=== PATIENT | male | born 1950 | race Caucasian/White ===

== ENCOUNTER 2024-05-03 16:48 | Inpatient (IN) | payer SELFPAY ==
[2024-05-03] VITALS (7 sets, daily range): BP systolic 72–114; BP diastolic 46–55; PULSE 88–100; RESP 18–24; O2SAT 93–97
[~2024-05-03] VITALS: Ht 177.8 cm; Wt 77.5 kg
[2024-05-03] MEDS: MIDAZOLAM DRIP 50 mg/50mL 50 ML IV SCH (17:00)
[2024-05-03] MEDS: fentaNYL Drip 2500mCg/250mlNS 250 ML IV SCH (17:00)
[2024-05-03] MEDS: MIDAZOLAM DRIP 50 mg/50mL 50 ML IV ONE (17:03)
[2024-05-03] MEDS: SUCCINYLCHOLINE CHLORIDE 20 MG/ML 10ML VIAL IV ONE ×2 (17:03→18:00)
[2024-05-03] MEDS: ETOMIDATE (2MG/ML) 20ML VIAL IV ONE ×2 (17:03→17:59)
[2024-05-03] MEDS: SODIUM CHLORIDE 0.9% 2,200 ML IV ONE (17:15)
[2024-05-03] MEDS: fentaNYL Drip 2500mCg/250mlNS 250 ML IV ONE (17:31)
[2024-05-03] MEDS: PROPOFOL 100 ML IV SCH (17:45)
[2024-05-03] MEDS: ROCURONIUM 10MG/ML 10ML VIAL IV ONE (18:00)
[2024-05-03] MEDS: PROPOFOL 100 ML IV ONE (18:05)
[2024-05-03] MEDS: NOREPINEPHRINE 8 MG/250ML KIT 250 ML IV SCH (18:15)
[2024-05-03 18:42] LABS: Lactic Acid w/Reflex 5.8 mmol/L (0.4-2.0)
[2024-05-03 18:55] LABS: Base Excess -15.7 mmol/L (-2.0-2.0)
[2024-05-03] MEDS: NOREPINEPHRINE 8 MG/250ML KIT 250 ML IV ONE (18:56)
[2024-05-03 19:06] LABS: Basophils # (auto) 0.1 10 ^3/uL (0-0.2); Basophils % (auto) 0.4 % (0.0-2.0); Eosinophils # (auto) 0 10 ^3/uL (0-0.8); Hematocrit 42.6 % (41.0-53.0); Hemoglobin 13.7 g/dL (13.5-17.5); Lymphocytes # (auto) 0.9 10 ^3/uL (0.4-5.4); Lymphocytes % (auto) 3.7 % (10.0-50.0); Mean Corpuscular Hgb Conc. 32.2 g/dL (32.0-36.0); Mean Corpuscular Volume 93.4 fL (80.0-100.0); Monocytes # (auto) 1.8 10 ^3/uL (0-1.3); Monocytes % (auto) 7.2 % (0.0-12.0); Neutrophils % (auto) 88.7 % (37.0-80.0); Platelet Count (auto) 289 10^3/uL (140-450); Red Blood Cells 4.56 10^6/uL (4.5-5.90); Red Cell Distribution Width 13.5 % (11.8-14.3); White Blood Cell 24.8 10^3/uL (4.4-10.8)
[2024-05-03 19:16] LABS: Alanine Aminotransferase 52 U/L (7-40); Albumin 3.8 g/dL (3.2-4.8); Alkaline Phosphatase 144 U/L (46-116); Anion Gap 17 (5-15); Aspartate Aminotransferase 53 U/L (13-40); BUN/Creatinine Ratio 17.2 (10.0-20.0); Blood Urea Nitrogen 28 mg/dL (9-23); Calcium 9.1 mg/dL (8.7-10.4); Carbon Dioxide 15 mmol/L (20-30); Chloride 105 mmol/L (98-107); Creatine Kinase IFCC 417 U/L (46-171); Sodium 137 mmol/L (136-145)
[2024-05-03 19:17] LABS: Bilirubin, Total 0.4 mg/dL (0.2-1.0); Total Protein 5.8 g/dL (5.7-8.2)
[2024-05-03 19:22] LABS: Urine Bacteria None Seen /hpf (None Seen)
[2024-05-03 19:23] LABS: Glucose 625 mg/dL (74-106)
[2024-05-03 19:49] LABS: Urine Blood Negative /uL (Negative); Urine Clarity Clear (Clear); Urine Color Light-Yellow (Yellow); Urine Protein, UAD Negative (Negative); Urine Specific Gravity 1.034 (1.001-1.035); Urine Urobilinogen Normal (Negative); Urine WBC 1 /hpf (0 - 3)
[2024-05-03] MEDS: SODIUM BICARB 8.4% 50Meq/50ml SYR Vial IV ONE (19:53)
[2024-05-03] MEDS: InsuLIN REG 1unit/0.01ml Soln (100units/ml) IV ONE (19:54)
[2024-05-03] MEDS: VASOPRESSIN 20 UNITS in SODIUM CHL 0.9% 99 ML IV SCH (20:01)
[2024-05-03] MEDS ORDERED: DEXTROSE (50%) 50ML SYRG IV PRN (20:15)
[2024-05-03 20:50] LABS: Magnesium 2.2 mg/dL (1.6-2.6)
[2024-05-03 20:52] LABS: Phosphorus 5.8 mg/dL (2.4-5.1)
[2024-05-03] MEDS: ALBUTEROL SULF 2.5 MG/0.5ML(0.5%) NEB SOLN NEB ONE (21:06)
[2024-05-03] MEDS: PIPERACILLIN-TAZO 4.5GM 100 ML IV ONE (21:09)
[2024-05-03] MEDS: SODIUM CHLORIDE 0.9% 1,000 ML IV SCH (21:09)
[2024-05-03] MEDS: INSULIN LANTUS (GLARGINE) 1 /0.01ml (100units/ml) SC ONE (21:16)
[2024-05-03 21:20] LABS: Base Excess -14.6 mmol/L (-2.0-2.0)
[2024-05-03] MEDS: INSULIN DRIP 100 UNIT/100ML 100 ML IV SCH (21:20)
[2024-05-03] MEDS: ACCU-CHEK COMFORT CURVE STRIP VI SCH (21:24)
[2024-05-03] MEDS: VANCOMYCIN 1GM/200ML 200 ML IV ONE (21:29)
[2024-05-03] MEDS: CALCIUM GLUC 1,000mg/50ml-NS 50 ML IV ONE (21:33)
[2024-05-03 21:34] LABS: Chloride 106 mmol/L (98-107); Potassium 5.4 mmol/L (3.5-5.1); Sodium 139 mmol/L (136-145)
[2024-05-03 21:35] LABS: Anion Gap 22 (5-15); Carbon Dioxide 11 mmol/L (20-30)
[2024-05-03 21:36] LABS: Calcium 9.3 mg/dL (8.7-10.4)
[2024-05-03 21:41] LABS: BUN/Creatinine Ratio 12.3 (10.0-20.0); Blood Urea Nitrogen 19 mg/dL (9-23)
[2024-05-03 21:50] LABS: Glucose 618 mg/dL (74-106)
[2024-05-03 22:06] LABS: INR 0.99 (0.9-1.15); Partial Thromboplastin Time 23.9 SEC (24.5-34.5); Prothrombin Time 10.5 sec (9.3-11.8)
[2024-05-03] MEDS: HEPARIN SODIUM (PORCINE) 5000 UNITS/ML 1ML VIAL IV ONE (22:29)
[2024-05-03] MEDS: HEPARIN DRIP/D5W 100UNITS/ML 250 ML IV SCH (22:42)
[2024-05-03] MEDS ORDERED: NITROGLYCERIN 0.4 MG SL TAB SL PRN (22:45)
[2024-05-03] MEDS ORDERED: ONDANSETRON HCL 4 MG/2 ML VIAL IV PRN (22:45)
[2024-05-03] MEDS ORDERED: MORPHINE SULFATE INJ 2 MG/ml SYRG IV PRN (22:45)
[2024-05-04] VITALS (77 sets, daily range): BP systolic 95–130; BP diastolic 46–73; PULSE 72–91; RESP 17–24; TEMP 98.2–100.4; O2SAT 96–100
[2024-05-04] MEDS: SODIUM CHLORIDE 0.9% 1,000 ML IV SCH ×2 (00:26→04:09)
[2024-05-04 02:23] LABS: Anion Gap 15 (5-15); Carbon Dioxide 14 mmol/L (20-30); Chloride 114 mmol/L (98-107); Potassium 4.2 mmol/L (3.5-5.1); Sodium 143 mmol/L (136-145)
[2024-05-04 02:24] LABS: Calcium 8.5 mg/dL (8.7-10.4)
[2024-05-04 02:29] LABS: Blood Urea Nitrogen 16 mg/dL (9-23)
[2024-05-04 02:55] LABS: Glucose 368 mg/dL (74-106)
[2024-05-04 03:36] LABS: Basophils # (auto) 0 10 ^3/uL (0-0.2); Basophils % (auto) 0.3 % (0.0-2.0); Eosinophils # (auto) 0 10 ^3/uL (0-0.8); Hematocrit 40.2 % (41.0-53.0); Hemoglobin 12.9 g/dL (13.5-17.5); Mean Corpuscular Hemoglobin 30.1 pg (28.0-32.0); Mean Corpuscular Hgb Conc. 32.2 g/dL (32.0-36.0); Mean Corpuscular Volume 93.6 fL (80.0-100.0); Monocytes # (auto) 2.4 10 ^3/uL (0-1.3); Monocytes % (auto) 13.4 % (0.0-12.0); Neutrophils # (auto) 13.7 10 ^3/uL (1.6-8.6); Neutrophils % (auto) 75.3 % (37.0-80.0); Platelet Count (auto) 273 10^3/uL (140-450); Red Blood Cells 4.29 10^6/uL (4.5-5.90); Red Cell Distribution Width 13.7 % (11.8-14.3); White Blood Cell 18.2 10^3/uL (4.4-10.8)
[2024-05-04 03:59] LABS: Alanine Aminotransferase 50 U/L (7-40); Albumin 3.4 g/dL (3.2-4.8); Alkaline Phosphatase 116 U/L (46-116); Anion Gap 14 (5-15); Aspartate Aminotransferase 63 U/L (13-40); BUN/Creatinine Ratio 14.2 (10.0-20.0); Bilirubin, Total 0.3 mg/dL (0.2-1.0); Blood Urea Nitrogen 20 mg/dL (9-23); Calcium 8.4 mg/dL (8.7-10.4); Carbon Dioxide 16 mmol/L (20-30); Chloride 115 mmol/L (98-107); Glucose 344 mg/dL (74-106); Potassium 4.1 mmol/L (3.5-5.1); Sodium 145 mmol/L (136-145); Total Protein 5.6 g/dL (5.7-8.2)
[2024-05-04 05:25] LABS: INR 0.98 (0.9-1.15); Partial Thromboplastin Time 68.1 SEC (24.5-34.5); Prothrombin Time 10.4 sec (9.3-11.8)
[2024-05-04 07:30] LABS: Base Excess -8.1 mmol/L (-2.0-2.0)
[2024-05-04] MEDS: PIPERACILLIN-TAZOB 3.375GM 100 ML IV SCH (07:53)
[2024-05-04 10:29] LABS: Alanine Aminotransferase 43 U/L (7-40); Albumin 3.1 g/dL (3.2-4.8); Alkaline Phosphatase 98 U/L (46-116); Anion Gap 10 (5-15); Aspartate Aminotransferase 55 U/L (13-40); BUN/Creatinine Ratio 19.2 (10.0-20.0); Bilirubin, Total 0.4 mg/dL (0.2-1.0); Blood Urea Nitrogen 23 mg/dL (9-23); Calcium 7.8 mg/dL (8.7-10.4); Carbon Dioxide 20 mmol/L (20-30); Chloride 119 mmol/L (98-107); Potassium 3.6 mmol/L (3.5-5.1); Sodium 149 mmol/L (136-145); Total Protein 4.9 g/dL (5.7-8.2)
[2024-05-04 10:43] LABS: Glucose 153 mg/dL (74-106)
[2024-05-04 10:45] LABS: Partial Thromboplastin Time 53.4 SEC (24.5-34.5); Prothrombin Time 10.6 sec (9.3-11.8)
[2024-05-04] MEDS: SOD CHL 0.45% 1,000 ML IV SCH (11:30)
[2024-05-04 12:40] LABS: Chloride 119 mmol/L (98-107); Potassium 3.4 mmol/L (3.5-5.1); Sodium 149 mmol/L (136-145)
[2024-05-04 12:41] LABS: Anion Gap 9 (5-15); Carbon Dioxide 21 mmol/L (20-30)
[2024-05-04 12:42] LABS: Calcium 7.9 mg/dL (8.7-10.4)
[2024-05-04 12:46] LABS: BUN/Creatinine Ratio 19.2 (10.0-20.0); Blood Urea Nitrogen 25 mg/dL (9-23); Glucose 99 mg/dL (74-106)
[2024-05-04] MEDS ORDERED: DEXTROSE (50%) 50ML SYRG IV PRN (13:15)
[2024-05-04 13:31] LABS: Amphetamine Screen, Urine Neg (NEGATIVE)
[2024-05-04 13:32] LABS: Barbiturate Scree,Urine Neg (NEGATIVE); Benzodiazephine Screen, Urine Pos (NEGATIVE); Cannabinoid Screen, Urine Neg (NEGATIVE); Cocaine Screen, Urine Neg (NEGATIVE); Opiate Scree,Urine Neg (NEGATIVE); Phencyclidine Screen, Urine Neg (NEGATIVE)
[2024-05-04] MEDS: SOD CHL 0.45% WITH 20MEQ KCL 1,000 ML IV SCH (13:52)
[2024-05-04] MEDS: FREE WATER GT SCH (17:43)
[2024-05-04] MEDS: InsuLIN REG 1unit/0.01ml Soln (100units/ml) SC SCH (17:43)
[2024-05-04] MEDS: ACCU-CHEK COMFORT CURVE STRIP VI SCH (17:43)
[2024-05-04 18:08] LABS: Chloride 120 mmol/L (98-107); Potassium 3.9 mmol/L (3.5-5.1); Sodium 147 mmol/L (136-145)
[2024-05-04 18:09] LABS: Anion Gap 7 (5-15); Carbon Dioxide 20 mmol/L (20-30)
[2024-05-04 18:10] LABS: Calcium 7.8 mg/dL (8.7-10.4)
[2024-05-04 18:14] LABS: BUN/Creatinine Ratio 19.1 (10.0-20.0); Blood Urea Nitrogen 25 mg/dL (9-23); Glucose 127 mg/dL (74-106)
[2024-05-04] MEDS: Glucerna 1.2 Cal 1Liter BOTTLE GT SCH (21:42)
[2024-05-04] MEDS: INSULIN LANTUS (GLARGINE) 1 /0.01ml (100units/ml) SC SCH (21:47)
[2024-05-05] VITALS (106 sets, daily range): BP systolic 96–134; BP diastolic 47–66; PULSE 65–80; RESP 11–19; TEMP 97.7–99.7; O2SAT 88–100
[2024-05-05 03:54] LABS: Basophils # (auto) 0 10 ^3/uL (0-0.2); Basophils % (auto) 0.2 % (0.0-2.0); Eosinophils # (auto) 0 10 ^3/uL (0-0.8); Eosinophils % (auto) 0.2 % (0.0-7.0); Hematocrit 34.6 % (41.0-53.0); Hemoglobin 11.6 g/dL (13.5-17.5); Lymphocytes # (auto) 1.1 10 ^3/uL (0.4-5.4); Lymphocytes % (auto) 10.4 % (10.0-50.0); Mean Corpuscular Hemoglobin 30.8 pg (28.0-32.0); Mean Corpuscular Hgb Conc. 33.5 g/dL (32.0-36.0); Mean Corpuscular Volume 91.7 fL (80.0-100.0); Monocytes % (auto) 9.9 % (0.0-12.0); Neutrophils # (auto) 8.2 10 ^3/uL (1.6-8.6); Neutrophils % (auto) 79.3 % (37.0-80.0); Platelet Count (auto) 163 10^3/uL (140-450); Red Blood Cells 3.77 10^6/uL (4.5-5.90); Red Cell Distribution Width 13.7 % (11.8-14.3); White Blood Cell 10.3 10^3/uL (4.4-10.8)
[2024-05-05 03:57] LABS: Anion Gap 6 (5-15); Carbon Dioxide 20 mmol/L (20-30); Chloride 116 mmol/L (98-107); Potassium 4.7 mmol/L (3.5-5.1); Sodium 142 mmol/L (136-145)
[2024-05-05 04:03] LABS: BUN/Creatinine Ratio 20.6 (10.0-20.0); Blood Urea Nitrogen 27 mg/dL (9-23); Glucose 173 mg/dL (74-106)
[2024-05-05 07:13] LABS: Base Excess -10.6 mmol/L (-2.0-2.0)
[2024-05-05] MEDS: SOD CHL 0.45% 1,000 ML IV SCH (10:04)
[2024-05-05] MEDS: ENOXAPARIN SOD 40 MG/0.4 ML SYRINGE SC SCH (10:05)
[2024-05-06] VITALS (106 sets, daily range): BP systolic 100–183; BP diastolic 45–79; PULSE 61–87; RESP 13–27; TEMP 97–100; O2SAT 89–100
[2024-05-06 03:47] LABS: Basophils # (auto) 0 10 ^3/uL (0-0.2); Basophils % (auto) 0.2 % (0.0-2.0); Eosinophils # (auto) 0 10 ^3/uL (0-0.8); Eosinophils % (auto) 0.4 % (0.0-7.0); Hemoglobin 11.7 g/dL (13.5-17.5); Lymphocytes % (auto) 12.8 % (10.0-50.0); Mean Corpuscular Hgb Conc. 33.4 g/dL (32.0-36.0); Mean Corpuscular Volume 92.6 fL (80.0-100.0); Monocytes # (auto) 0.8 10 ^3/uL (0-1.3); Monocytes % (auto) 9.9 % (0.0-12.0); Neutrophils # (auto) 6.3 10 ^3/uL (1.6-8.6); Neutrophils % (auto) 76.7 % (37.0-80.0); Nucleated Red Blood Cells % 0.2 %; Platelet Count (auto) 140 10^3/uL (140-450); Red Blood Cells 3.78 10^6/uL (4.5-5.90); Red Cell Distribution Width 14.1 % (11.8-14.3); White Blood Cell 8.2 10^3/uL (4.4-10.8)
[2024-05-06 03:52] LABS: Chloride 113 mmol/L (98-107); Sodium 139 mmol/L (136-145)
[2024-05-06 03:53] LABS: Anion Gap 9 (5-15); Calcium 8.2 mg/dL (8.7-10.4); Carbon Dioxide 17 mmol/L (20-30)
[2024-05-06 03:58] LABS: BUN/Creatinine Ratio 24.7 (10.0-20.0); Blood Urea Nitrogen 39 mg/dL (9-23); Glucose 160 mg/dL (74-106)
[2024-05-06 04:00] LABS: Creatine Kinase IFCC 90 U/L (46-171); Phosphorus 4.5 mg/dL (2.4-5.1)
[2024-05-06 08:06] LABS: Base Excess -10.4 mmol/L (-2.0-2.0)
[2024-05-06] MEDS ORDERED: Glucerna 1.2 Cal 1Liter BOTTLE GT SCH (08:45)
[2024-05-06] MEDS: SODIUM BICARB 50mEq/50ml Vial 50 ML in SOD CHL 0.45% 1,000 ML IV SCH (10:06)
[2024-05-06] MEDS: ASPirin-EC 81 mg tab PO SCH (10:42)
[2024-05-06 16:49] LABS: Urine Bacteria None Seen /hpf (None Seen)
[2024-05-06 17:44] LABS: Sodium Urine < 10 mmol/L (40-220)
[2024-05-06 17:53] LABS: Creatinine, Urine 188.48 mg/dL (30.0-125.0)
[2024-05-06 18:08] LABS: Urine Blood 3+ /uL (Negative); Urine Clarity Ex.Turbid (Clear); Urine Color Yellow (Yellow); Urine Protein, UAD 1+ (Negative); Urine Specific Gravity 1.027 (1.001-1.035); Urine Urobilinogen Normal (Negative); Urine WBC 125 /hpf (0 - 3); Urine pH 5.5 (5.0-9.0)
[2024-05-07] VITALS (85 sets, daily range): BP systolic 99–183; BP diastolic 50–105; PULSE 77–99; RESP 13–33; TEMP 99.1–100.2; O2SAT 95–100
[2024-05-07 04:19] LABS: Anion Gap 12 (5-15); Carbon Dioxide 16 mmol/L (20-30); Chloride 110 mmol/L (98-107); Potassium 3.8 mmol/L (3.5-5.1); Sodium 138 mmol/L (136-145)
[2024-05-07 04:20] LABS: Calcium 8.3 mg/dL (8.7-10.4)
[2024-05-07 04:25] LABS: BUN/Creatinine Ratio 27.4 (10.0-20.0); Blood Urea Nitrogen 34 mg/dL (9-23); Glucose 166 mg/dL (74-106); Triglycerides 105 mg/dL (< 150)
[2024-05-07 04:26] LABS: LDL Cholesterol 56 mg/dL (< 100)
[2024-05-07 04:27] LABS: Cholesterol 119 mg/dL (< 200); HDL Cholesterol 38 mg/dL (40-59)
[2024-05-07 07:24] LABS: Basophils # (auto) 0 10 ^3/uL (0-0.2); Basophils % (auto) 0.2 % (0.0-2.0); Eosinophils # (auto) 0 10 ^3/uL (0-0.8); Hematocrit 35.2 % (41.0-53.0); Hemoglobin 11.9 g/dL (13.5-17.5); Lymphocytes # (auto) 0.6 10 ^3/uL (0.4-5.4); Lymphocytes % (auto) 4.8 % (10.0-50.0); Mean Corpuscular Hemoglobin 31.2 pg (28.0-32.0); Mean Corpuscular Hgb Conc. 33.7 g/dL (32.0-36.0); Mean Corpuscular Volume 92.6 fL (80.0-100.0); Monocytes # (auto) 1.1 10 ^3/uL (0-1.3); Monocytes % (auto) 8.8 % (0.0-12.0); Neutrophils # (auto) 10.3 10 ^3/uL (1.6-8.6); Neutrophils % (auto) 86.2 % (37.0-80.0); Platelet Count (auto) 198 10^3/uL (140-450); Red Cell Distribution Width 13.7 % (11.8-14.3); White Blood Cell 11.9 10^3/uL (4.4-10.8)
[2024-05-07 07:35] LABS: Base Excess -7.1 mmol/L (-2.0-2.0)
[2024-05-07] MEDS: FUROSEMIDE 20 MG TAB PO SCH (09:43)
[2024-05-07] MEDS: cefTRIAXone 1GM/50ML D5W 50 ML IV SCH (09:43)
[2024-05-07] MEDS: METOPROLOL TARTRATE 25 MG TAB PO SCH (09:44)
[2024-05-07] MEDS: BUMETANIDE 2.5mg/10ml (0.25 mg/ml) INJ IV ONE (15:08)
[2024-05-07] MEDS: ACETAMINOPHEN 325 MG TAB PO PRN (17:44)
[2024-05-08] VITALS (109 sets, daily range): BP systolic 77–183; BP diastolic 47–95; PULSE 59–141; RESP 15–33; TEMP 97.7–100.4; O2SAT 95–100
[2024-05-08 04:06] LABS: Basophils # (auto) 0.1 10 ^3/uL (0-0.2); Basophils % (auto) 0.6 % (0.0-2.0); Eosinophils # (auto) 0 10 ^3/uL (0-0.8); Eosinophils % (auto) 0.1 % (0.0-7.0); Hematocrit 36.5 % (41.0-53.0); Hemoglobin 12.2 g/dL (13.5-17.5); Lymphocytes # (auto) 0.8 10 ^3/uL (0.4-5.4); Lymphocytes % (auto) 6.7 % (10.0-50.0); Mean Corpuscular Hemoglobin 30.6 pg (28.0-32.0); Mean Corpuscular Hgb Conc. 33.5 g/dL (32.0-36.0); Mean Corpuscular Volume 91.5 fL (80.0-100.0); Monocytes % (auto) 8.8 % (0.0-12.0); Neutrophils # (auto) 9.7 10 ^3/uL (1.6-8.6); Neutrophils % (auto) 83.8 % (37.0-80.0); Platelet Count (auto) 238 10^3/uL (140-450); Red Blood Cells 3.99 10^6/uL (4.5-5.90); Red Cell Distribution Width 13.4 % (11.8-14.3); White Blood Cell 11.6 10^3/uL (4.4-10.8)
[2024-05-08 04:09] LABS: Chloride 108 mmol/L (98-107); Sodium 140 mmol/L (136-145)
[2024-05-08 04:10] LABS: Anion Gap 11 (5-15); Calcium 8.3 mg/dL (8.7-10.4); Carbon Dioxide 21 mmol/L (20-30)
[2024-05-08 04:15] LABS: BUN/Creatinine Ratio 23.2 (10.0-20.0); Blood Urea Nitrogen 22 mg/dL (9-23); Glucose 85 mg/dL (74-106)
[2024-05-08] MEDS: hydrALAZINE HCL 20 MG/ML VL ONE (06:56)
[2024-05-08 07:27] LABS: Base Excess -2.9 mmol/L (-2.0-2.0)
[2024-05-08] MEDS: hydrALAZINE HCL 20 MG/ML VL IV ONE (07:28)
[2024-05-08] MEDS: POTASSIUM CHL 20MEQ/100ML 100 ML IV ONE (08:06)
[2024-05-08] MEDS: CARVEDILOL 3.125 MG TAB PO SCH (10:00)
[2024-05-08] MEDS: LOSARTAN POTASSIUM 25 MG TAB PO SCH (10:00)
[2024-05-08] MEDS: POTASSIUM EFFERVESENT TAB 25 MEQ PO ONE (10:20)
[2024-05-08] MEDS: FUROSEMIDE 20 MG/2 ML VIAL IV SCH (10:20)
[2024-05-08 14:48] LABS: Potassium 3.5 mmol/L (3.5-5.1)
[2024-05-08 14:55] LABS: Magnesium 1.8 mg/dL (1.6-2.6)
[2024-05-09] VITALS (75 sets, daily range): BP systolic 79–164; BP diastolic 46–82; PULSE 63–101; RESP 12–27; TEMP 97.8–100; O2SAT 94–100
[2024-05-09 04:29] LABS: Anion Gap 13 (5-15); Carbon Dioxide 20 mmol/L (20-30); Chloride 108 mmol/L (98-107); Potassium 3.2 mmol/L (3.5-5.1); Sodium 141 mmol/L (136-145)
[2024-05-09 04:30] LABS: Calcium 8.3 mg/dL (8.7-10.4)
[2024-05-09 04:32] LABS: Basophils # (auto) 0 10 ^3/uL (0-0.2); Basophils % (auto) 0.1 % (0.0-2.0); Eosinophils # (auto) 0 10 ^3/uL (0-0.8); Eosinophils % (auto) 0.3 % (0.0-7.0); Hematocrit 36.3 % (41.0-53.0); Lymphocytes # (auto) 0.9 10 ^3/uL (0.4-5.4); Mean Corpuscular Hemoglobin 30.3 pg (28.0-32.0); Mean Corpuscular Hgb Conc. 33.2 g/dL (32.0-36.0); Mean Corpuscular Volume 91.4 fL (80.0-100.0); Monocytes # (auto) 1.2 10 ^3/uL (0-1.3); Monocytes % (auto) 10.5 % (0.0-12.0); Neutrophils # (auto) 9.2 10 ^3/uL (1.6-8.6); Neutrophils % (auto) 81.1 % (37.0-80.0); Platelet Count (auto) 247 10^3/uL (140-450); Red Blood Cells 3.97 10^6/uL (4.5-5.90); Red Cell Distribution Width 13.3 % (11.8-14.3); White Blood Cell 11.4 10^3/uL (4.4-10.8)
[2024-05-09 04:35] LABS: BUN/Creatinine Ratio 24.4 (10.0-20.0); Blood Urea Nitrogen 22 mg/dL (9-23); Glucose 110 mg/dL (74-106)
[2024-05-09] MEDS: POTASSIUM CHL 20MEQ/100ML 100 ML IV SCH (08:26)
[2024-05-09 08:47] LABS: Base Excess -4.8 mmol/L (-2.0-2.0)
[2024-05-09] MEDS: FUROSEMIDE 40 MG/4 ML VIAL IV SCH (14:34)
[2024-05-10] VITALS (25 sets, daily range): BP systolic 123–171; BP diastolic 62–90; PULSE 89–106; RESP 18–31; TEMP 99.1–99.9; O2SAT 92–100
[2024-05-10] MEDS: POTASSIUM CHL 20MEQ/100ML 100 ML IV ONE (01:23)
[2024-05-10] MEDS: hydrALAZINE HCL 20 MG/ML VL IV PRN (01:24)
[2024-05-10 05:48] LABS: Basophils # (auto) 0 10 ^3/uL (0-0.2); Basophils % (auto) 0.3 % (0.0-2.0); Eosinophils # (auto) 0 10 ^3/uL (0-0.8); Eosinophils % (auto) 0.1 % (0.0-7.0); Hematocrit 38.4 % (41.0-53.0); Hemoglobin 12.9 g/dL (13.5-17.5); Lymphocytes # (auto) 1.1 10 ^3/uL (0.4-5.4); Lymphocytes % (auto) 10.6 % (10.0-50.0); Mean Corpuscular Hemoglobin 30.6 pg (28.0-32.0); Mean Corpuscular Hgb Conc. 33.7 g/dL (32.0-36.0); Mean Corpuscular Volume 90.7 fL (80.0-100.0); Monocytes # (auto) 1.6 10 ^3/uL (0-1.3); Monocytes % (auto) 15.2 % (0.0-12.0); Neutrophils # (auto) 7.9 10 ^3/uL (1.6-8.6); Neutrophils % (auto) 73.8 % (37.0-80.0); Nucleated Red Blood Cells % 0.1 %; Platelet Count (auto) 320 10^3/uL (140-450); Red Blood Cells 4.23 10^6/uL (4.5-5.90); Red Cell Distribution Width 13.5 % (11.8-14.3); White Blood Cell 10.7 10^3/uL (4.4-10.8)
[2024-05-10 06:07] LABS: Anion Gap 14 (5-15); Carbon Dioxide 22 mmol/L (20-30); Chloride 109 mmol/L (98-107); Potassium 3.3 mmol/L (3.5-5.1); Sodium 145 mmol/L (136-145)
[2024-05-10 06:08] LABS: Calcium 8.7 mg/dL (8.7-10.4)
[2024-05-10 06:13] LABS: BUN/Creatinine Ratio 23.9 (10.0-20.0); Blood Urea Nitrogen 21 mg/dL (9-23); Glucose 87 mg/dL (74-106)
[2024-05-10] MEDS: POTASSIUM CHL 20MEQ/100ML 100 ML IV SCH (09:46)
[2024-05-10] MEDS: D5W/LACTATED RINGERS 1,000 ML IV SCH (21:41)
[2024-05-11] VITALS (27 sets, daily range): BP systolic 133–198; BP diastolic 58–100; PULSE 89–112; RESP 13–31; TEMP 97.4–99.5; O2SAT 89–100
[2024-05-11 05:22] LABS: Basophils # (auto) 0 10 ^3/uL (0-0.2); Basophils % (auto) 0.1 % (0.0-2.0); Eosinophils # (auto) 0 10 ^3/uL (0-0.8); Hematocrit 39.5 % (41.0-53.0); Hemoglobin 13.1 g/dL (13.5-17.5); Lymphocytes # (auto) 1.2 10 ^3/uL (0.4-5.4); Lymphocytes % (auto) 9.3 % (10.0-50.0); Mean Corpuscular Hemoglobin 30.1 pg (28.0-32.0); Mean Corpuscular Hgb Conc. 33.1 g/dL (32.0-36.0); Mean Corpuscular Volume 91.1 fL (80.0-100.0); Monocytes # (auto) 1.7 10 ^3/uL (0-1.3); Monocytes % (auto) 12.6 % (0.0-12.0); Neutrophils # (auto) 10.3 10 ^3/uL (1.6-8.6); Platelet Count (auto) 333 10^3/uL (140-450); Red Blood Cells 4.34 10^6/uL (4.5-5.90); Red Cell Distribution Width 13.5 % (11.8-14.3); White Blood Cell 13.2 10^3/uL (4.4-10.8)
[2024-05-11 05:34] LABS: Alanine Aminotransferase 37 U/L (7-40); Albumin 2.8 g/dL (3.2-4.8); Alkaline Phosphatase 115 U/L (46-116); Anion Gap 19 (5-15); Aspartate Aminotransferase 29 U/L (13-40); Bilirubin, Total 0.5 mg/dL (0.2-1.0); Blood Urea Nitrogen 23 mg/dL (9-23); Calcium 8.7 mg/dL (8.7-10.4); Carbon Dioxide 17 mmol/L (20-30); Chloride 111 mmol/L (98-107); Potassium 3.3 mmol/L (3.5-5.1); Sodium 147 mmol/L (136-145); Total Protein 5.2 g/dL (5.7-8.2)
[2024-05-11 05:57] LABS: Glucose 198 mg/dL (74-106)
[2024-05-11] MEDS ORDERED: POTASSIUM CHL 20MEQ/100ML 100 ML IV ONE (10:30)
[2024-05-11] MEDS: POTASSIUM CHL 20MEQ/100ML 100 ML IV SCH (11:06)
[2024-05-11] MEDS: HALOPERIDOL LACTATE 5 MG/ML INJ VIAL IM ONE (14:00)
[2024-05-11] MEDS: INSULIN LANTUS (GLARGINE) 1 /0.01ml (100units/ml) SC ONE (14:15)
[2024-05-11] MEDS ORDERED: Glucerna 1.2 Cal 1Liter BOTTLE GT SCH (14:15)
[2024-05-11] MEDS: LORazepam 2MG/ML-1ML VIAL IV PRN (22:04)
[2024-05-12] VITALS (16 sets, daily range): BP systolic 116–187; BP diastolic 55–89; PULSE 85–113; RESP 18–35; TEMP 97.5–98.6; O2SAT 92–98
[2024-05-12 04:51] LABS: Basophils # (auto) 0 10 ^3/uL (0-0.2); Basophils % (auto) 0.2 % (0.0-2.0); Eosinophils # (auto) 0 10 ^3/uL (0-0.8); Eosinophils % (auto) 0.1 % (0.0-7.0); Hematocrit 39.8 % (41.0-53.0); Hemoglobin 13.5 g/dL (13.5-17.5); Lymphocytes # (auto) 1.5 10 ^3/uL (0.4-5.4); Lymphocytes % (auto) 9.1 % (10.0-50.0); Mean Corpuscular Hemoglobin 30.8 pg (28.0-32.0); Mean Corpuscular Hgb Conc. 33.9 g/dL (32.0-36.0); Mean Corpuscular Volume 90.8 fL (80.0-100.0); Monocytes # (auto) 1.4 10 ^3/uL (0-1.3); Monocytes % (auto) 8.7 % (0.0-12.0); Neutrophils # (auto) 13.1 10 ^3/uL (1.6-8.6); Neutrophils % (auto) 81.9 % (37.0-80.0); Platelet Count (auto) 354 10^3/uL (140-450); Red Blood Cells 4.39 10^6/uL (4.5-5.90); Red Cell Distribution Width 13.7 % (11.8-14.3)
[2024-05-12 04:59] LABS: Anion Gap 18 (5-15); Carbon Dioxide 17 mmol/L (20-30); Chloride 115 mmol/L (98-107); Potassium 3.6 mmol/L (3.5-5.1); Sodium 150 mmol/L (136-145)
[2024-05-12 05:06] LABS: Blood Urea Nitrogen 23 mg/dL (9-23); Glucose 196 mg/dL (74-106)
[2024-05-12 05:13] LABS: INR 1.14 (0.9-1.15); Partial Thromboplastin Time 26.3 SEC (24.5-34.5)
[2024-05-12] MEDS: POTASSIUM CHL 20MEQ/100ML 100 ML IV ONE (13:45)
[2024-05-12] MEDS ORDERED: CLINIMIX PER PHARMACY 0 ML IV SCH (20:00)
[2024-05-12] MEDS: AMINO ACID INFUSION IN D10W 1,000 ML IV SCH (21:46)
[2024-05-13] VITALS (34 sets, daily range): BP systolic 126–170; BP diastolic 66–94; PULSE 66–111; RESP 14–27; TEMP 97.1–99.2; O2SAT 91–98
[2024-05-13 05:28] LABS: Basophils # (auto) 0 10 ^3/uL (0-0.2); Basophils % (auto) 0.2 % (0.0-2.0); Eosinophils # (auto) 0 10 ^3/uL (0-0.8); Hematocrit 39.4 % (41.0-53.0); Hemoglobin 13.1 g/dL (13.5-17.5); Lymphocytes # (auto) 1.4 10 ^3/uL (0.4-5.4); Lymphocytes % (auto) 10.3 % (10.0-50.0); Mean Corpuscular Hgb Conc. 33.3 g/dL (32.0-36.0); Mean Corpuscular Volume 90.1 fL (80.0-100.0); Monocytes # (auto) 1.1 10 ^3/uL (0-1.3); Monocytes % (auto) 8.1 % (0.0-12.0); Neutrophils # (auto) 11.2 10 ^3/uL (1.6-8.6); Neutrophils % (auto) 81.4 % (37.0-80.0); Platelet Count (auto) 380 10^3/uL (140-450); Red Blood Cells 4.37 10^6/uL (4.5-5.90); Red Cell Distribution Width 13.5 % (11.8-14.3); White Blood Cell 13.8 10^3/uL (4.4-10.8)
[2024-05-13 05:52] LABS: Alanine Aminotransferase 30 U/L (7-40); Albumin 3.2 g/dL (3.2-4.8); Alkaline Phosphatase 121 U/L (46-116); Anion Gap 16 (5-15); Aspartate Aminotransferase 22 U/L (13-40); BUN/Creatinine Ratio 24.8 (10.0-20.0); Bilirubin, Total 0.5 mg/dL (0.2-1.0); Blood Urea Nitrogen 25 mg/dL (9-23); Calcium 9.2 mg/dL (8.7-10.4); Carbon Dioxide 21 mmol/L (20-30); Chloride 116 mmol/L (98-107); Glucose 164 mg/dL (74-106); Magnesium 1.9 mg/dL (1.6-2.6); Phosphorus 2.8 mg/dL (2.4-5.1); Potassium 3.4 mmol/L (3.5-5.1); Sodium 153 mmol/L (136-145); Total Protein 5.4 g/dL (5.7-8.2)
[2024-05-13] MEDS: POTASSIUM EFFERVESENT TAB 25 MEQ GT ONE (10:20)
[2024-05-13] MEDS ORDERED: DEXTROSE (50%) 50ML SYRG IV SCH (10:45)
[2024-05-13] MEDS: ACCU-CHEK COMFORT CURVE STRIP VI SCH ×2 (10:53→16:52)
[2024-05-13] MEDS: InsuLIN REG 1unit/0.01ml Soln (100units/ml) SC SCH ×3 (11:21→22:17)
[2024-05-13] MEDS: HALOPERIDOL LACTATE 5 MG/ML INJ VIAL IM PRN (17:40)
[2024-05-14] VITALS (41 sets, daily range): BP systolic 113–189; BP diastolic 52–95; PULSE 72–101; RESP 12–26; TEMP 97.6–98.4; O2SAT 88–98
[2024-05-14 05:32] LABS: Basophils # (auto) 0 10 ^3/uL (0-0.2); Basophils % (auto) 0.2 % (0.0-2.0); Eosinophils # (auto) 0 10 ^3/uL (0-0.8); Eosinophils % (auto) 0.2 % (0.0-7.0); Hematocrit 39.6 % (41.0-53.0); Hemoglobin 13.1 g/dL (13.5-17.5); Lymphocytes # (auto) 1.5 10 ^3/uL (0.4-5.4); Lymphocytes % (auto) 11.8 % (10.0-50.0); Mean Corpuscular Hemoglobin 30.1 pg (28.0-32.0); Mean Corpuscular Hgb Conc. 33.2 g/dL (32.0-36.0); Mean Corpuscular Volume 90.7 fL (80.0-100.0); Monocytes # (auto) 0.8 10 ^3/uL (0-1.3); Neutrophils # (auto) 10.5 10 ^3/uL (1.6-8.6); Neutrophils % (auto) 81.8 % (37.0-80.0); Nucleated Red Blood Cells % 0.1 %; Platelet Count (auto) 345 10^3/uL (140-450); Red Blood Cells 4.36 10^6/uL (4.5-5.90); Red Cell Distribution Width 13.6 % (11.8-14.3); White Blood Cell 12.9 10^3/uL (4.4-10.8)
[2024-05-14 05:47] LABS: Alanine Aminotransferase 28 U/L (7-40); Albumin 3.3 g/dL (3.2-4.8); Alkaline Phosphatase 117 U/L (46-116); Anion Gap 9 (5-15); Aspartate Aminotransferase 31 U/L (13-40); BUN/Creatinine Ratio 24.2 (10.0-20.0); Blood Urea Nitrogen 22 mg/dL (9-23); Calcium 9.4 mg/dL (8.7-10.4); Carbon Dioxide 29 mmol/L (20-30); Chloride 118 mmol/L (98-107); Glucose 134 mg/dL (74-106); Potassium 3.4 mmol/L (3.5-5.1); Sodium 156 mmol/L (136-145)
[2024-05-14 05:48] LABS: Bilirubin, Total 0.5 mg/dL (0.2-1.0); Total Protein 5.4 g/dL (5.7-8.2)
[2024-05-14] MEDS: POTASSIUM EFFERVESENT TAB 25 MEQ PO ONE (09:26)
[2024-05-14] MEDS: FREE WATER PO SCH (15:46)
[2024-05-15] VITALS (14 sets, daily range): BP systolic 99–137; BP diastolic 50–75; PULSE 77–106; RESP 18–24; TEMP 97.3–98.5; O2SAT 91–100
[2024-05-15 05:43] LABS: Basophils # (auto) 0 10 ^3/uL (0-0.2); Eosinophils # (auto) 0 10 ^3/uL (0-0.8); Eosinophils % (auto) 0.2 % (0.0-7.0); Hematocrit 34.1 % (41.0-53.0); Hemoglobin 11.7 g/dL (13.5-17.5); Lymphocytes # (auto) 1.6 10 ^3/uL (0.4-5.4); Mean Corpuscular Hgb Conc. 34.3 g/dL (32.0-36.0); Mean Corpuscular Volume 90.3 fL (80.0-100.0); Monocytes # (auto) 0.9 10 ^3/uL (0-1.3); Monocytes % (auto) 5.7 % (0.0-12.0); Neutrophils # (auto) 13.2 10 ^3/uL (1.6-8.6); Neutrophils % (auto) 84.1 % (37.0-80.0); Platelet Count (auto) 266 10^3/uL (140-450); Red Blood Cells 3.77 10^6/uL (4.5-5.90); Red Cell Distribution Width 13.1 % (11.8-14.3); White Blood Cell 15.7 10^3/uL (4.4-10.8)
[2024-05-15 05:54] LABS: Alanine Aminotransferase 28 U/L (7-40); Albumin 2.8 g/dL (3.2-4.8); Alkaline Phosphatase 106 U/L (46-116); Anion Gap 9 (5-15); Aspartate Aminotransferase 39 U/L (13-40); BUN/Creatinine Ratio 20.7 (10.0-20.0); Bilirubin, Total 0.5 mg/dL (0.2-1.0); Blood Urea Nitrogen 18 mg/dL (9-23); Calcium 8.5 mg/dL (8.7-10.4); Carbon Dioxide 30 mmol/L (20-30); Glucose 135 mg/dL (74-106); Magnesium 1.6 mg/dL (1.6-2.6); Potassium 3.2 mmol/L (3.5-5.1)
[2024-05-15 06:12] LABS: Chloride 108 mmol/L (98-107); Sodium 147 mmol/L (136-145)
[2024-05-15] MEDS: MAGNESIUM SULFATE 1GM/100ML 100 ML IV SCH (11:00)
[2024-05-15] MEDS: ADENOSINE 62 MG in GIVE UN-DILUTED 0 ML IV STA (11:37)
[2024-05-15] MEDS: POTASSIUM CHLORIDE 40 MEQ, LIDOCAINE 1% (LOCAL ANESTH.) 4 ML in SODIUM CHL 0.9% 250 ML IV ONE (14:55)
[2024-05-15 19:59] LABS: Base Excess 1.9 mmol/L (-2.0-2.0)
[2024-05-15] MEDS: ALBUTEROL SULF 2.5 MG/0.5ML(0.5%) NEB SOLN NEB PRN (20:24)
[2024-05-15] MEDS: IPRATROPIUM BROM 0.5 MG/2.5ML INH SOL NEB PRN (20:24)
[2024-05-16] VITALS (13 sets, daily range): BP systolic 105–136; BP diastolic 56–77; PULSE 72–101; RESP 17–18; TEMP 97.6–98.9; O2SAT 90–94
[2024-05-16 05:55] LABS: Basophils # (auto) 0 10 ^3/uL (0-0.2); Basophils % (auto) 0.2 % (0.0-2.0); Eosinophils # (auto) 0.1 10 ^3/uL (0-0.8); Eosinophils % (auto) 0.4 % (0.0-7.0); Hematocrit 32.8 % (41.0-53.0); Hemoglobin 10.8 g/dL (13.5-17.5); Lymphocytes # (auto) 1.1 10 ^3/uL (0.4-5.4); Lymphocytes % (auto) 7.8 % (10.0-50.0); Mean Corpuscular Hemoglobin 30.1 pg (28.0-32.0); Mean Corpuscular Hgb Conc. 33.1 g/dL (32.0-36.0); Monocytes # (auto) 0.7 10 ^3/uL (0-1.3); Monocytes % (auto) 5.2 % (0.0-12.0); Neutrophils # (auto) 12.3 10 ^3/uL (1.6-8.6); Neutrophils % (auto) 86.4 % (37.0-80.0); Platelet Count (auto) 248 10^3/uL (140-450); Red Cell Distribution Width 13.2 % (11.8-14.3); White Blood Cell 14.3 10^3/uL (4.4-10.8)
[2024-05-16 06:49] LABS: Alanine Aminotransferase 22 U/L (7-40); Albumin 2.6 g/dL (3.2-4.8); Alkaline Phosphatase 93 U/L (46-116); Anion Gap 7 (5-15); Aspartate Aminotransferase 31 U/L (13-40); BUN/Creatinine Ratio 16.5 (10.0-20.0); Bilirubin, Total 0.5 mg/dL (0.2-1.0); Blood Urea Nitrogen 13 mg/dL (9-23); Calcium 8.4 mg/dL (8.7-10.4); Carbon Dioxide 30 mmol/L (20-30); Chloride 107 mmol/L (98-107); Glucose 135 mg/dL (74-106); Potassium 3.1 mmol/L (3.5-5.1); Sodium 144 mmol/L (136-145); Total Protein 4.7 g/dL (5.7-8.2)
[2024-05-16] MEDS: LEVALBUTEROL HCL 1.25 MG/3 ML NEB NEB SCH (11:25)
[2024-05-16] MEDS: POTASSIUM EFFERVESENT TAB 25 MEQ PO SCH (12:10)
[2024-05-16] MEDS: POTASSIUM CHLORIDE 60 MEQ, LIDOCAINE 1% (LOCAL ANESTH.) 6 ML in SODIUM CHL 0.9% 500 ML IV ONE (12:11)
[2024-05-16 12:39] LABS: Basophils # (auto) 0.1 10 ^3/uL (0-0.2); Basophils % (auto) 0.3 % (0.0-2.0); Eosinophils # (auto) 0.1 10 ^3/uL (0-0.8); Eosinophils % (auto) 0.7 % (0.0-7.0); Hemoglobin 11.6 g/dL (13.5-17.5); Lymphocytes # (auto) 1.2 10 ^3/uL (0.4-5.4); Lymphocytes % (auto) 8.1 % (10.0-50.0); Mean Corpuscular Hemoglobin 30.1 pg (28.0-32.0); Mean Corpuscular Hgb Conc. 33.2 g/dL (32.0-36.0); Mean Corpuscular Volume 90.7 fL (80.0-100.0); Monocytes # (auto) 0.7 10 ^3/uL (0-1.3); Neutrophils # (auto) 12.7 10 ^3/uL (1.6-8.6); Neutrophils % (auto) 85.9 % (37.0-80.0); Platelet Count (auto) 243 10^3/uL (140-450); Red Blood Cells 3.86 10^6/uL (4.5-5.90); Red Cell Distribution Width 13.2 % (11.8-14.3); White Blood Cell 14.8 10^3/uL (4.4-10.8)
[2024-05-17] VITALS (13 sets, daily range): BP systolic 103–148; BP diastolic 60–80; PULSE 78–90; RESP 16–20; TEMP 97.8–98.5; O2SAT 93–99
[2024-05-17] MEDS: FUROSEMIDE 20 MG TAB PO SCH (10:00)
[2024-05-17 10:27] LABS: Chloride 104 mmol/L (98-107); Potassium 3.5 mmol/L (3.5-5.1); Sodium 140 mmol/L (136-145)
[2024-05-17 10:28] LABS: Anion Gap 4 (5-15); Calcium 8.6 mg/dL (8.7-10.4); Carbon Dioxide 32 mmol/L (20-30)
[2024-05-17 10:33] LABS: BUN/Creatinine Ratio 13.8 (10.0-20.0); Blood Urea Nitrogen 11 mg/dL (9-23)
[2024-05-17 10:56] LABS: Glucose 253 mg/dL (74-106)
[2024-05-18] VITALS (11 sets, daily range): BP systolic 109–138; BP diastolic 61–76; PULSE 75–86; RESP 16–22; TEMP 98–98.3; O2SAT 92–98
[2024-05-18 07:16] LABS: Anion Gap 8 (5-15); Calcium 8.7 mg/dL (8.7-10.4); Carbon Dioxide 28 mmol/L (20-30); Chloride 103 mmol/L (98-107); Potassium 4.3 mmol/L (3.5-5.1); Sodium 139 mmol/L (136-145)
[2024-05-18 07:19] LABS: Basophils # (auto) 0 10 ^3/uL (0-0.2); Basophils % (auto) 0.2 % (0.0-2.0); Eosinophils # (auto) 0.1 10 ^3/uL (0-0.8); Hemoglobin 11.6 g/dL (13.5-17.5); Lymphocytes # (auto) 1.2 10 ^3/uL (0.4-5.4); Lymphocytes % (auto) 12.7 % (10.0-50.0); Mean Corpuscular Hemoglobin 30.5 pg (28.0-32.0); Mean Corpuscular Hgb Conc. 33.2 g/dL (32.0-36.0); Mean Corpuscular Volume 91.9 fL (80.0-100.0); Monocytes # (auto) 0.8 10 ^3/uL (0-1.3); Monocytes % (auto) 8.2 % (0.0-12.0); Neutrophils # (auto) 7.4 10 ^3/uL (1.6-8.6); Neutrophils % (auto) 77.9 % (37.0-80.0); Platelet Count (auto) 270 10^3/uL (140-450); Red Blood Cells 3.81 10^6/uL (4.5-5.90); Red Cell Distribution Width 13.1 % (11.8-14.3); White Blood Cell 9.5 10^3/uL (4.4-10.8)
[2024-05-18 07:22] LABS: BUN/Creatinine Ratio 13.9 (10.0-20.0); Blood Urea Nitrogen 11 mg/dL (9-23); Glucose 336 mg/dL (74-106)
[2024-05-18] MEDS: INSULIN LANTUS (GLARGINE) 1 /0.01ml (100units/ml) SC SCH (21:34)
[2024-05-19] VITALS (12 sets, daily range): BP systolic 112–151; BP diastolic 62–85; PULSE 72–94; RESP 16–20; TEMP 98.2–99.3; O2SAT 91–99
[2024-05-20] VITALS (14 sets, daily range): BP systolic 119–145; BP diastolic 65–77; PULSE 77–84; RESP 12–19; TEMP 97.5–97.8; O2SAT 92–100
[2024-05-21] VITALS (12 sets, daily range): BP systolic 108–141; BP diastolic 69–85; PULSE 78–87; RESP 14–20; TEMP 97.7–98.9; O2SAT 87–100
[2024-05-22] VITALS (13 sets, daily range): BP systolic 118–138; BP diastolic 65–77; PULSE 48–88; RESP 16–20; TEMP 97.6–98.5; O2SAT 92–100
[2024-05-22 07:09] LABS: Basophils # (auto) 0 10 ^3/uL (0-0.2); Basophils % (auto) 0.5 % (0.0-2.0); Eosinophils # (auto) 0.1 10 ^3/uL (0-0.8); Eosinophils % (auto) 1.2 % (0.0-7.0); Hematocrit 33.1 % (41.0-53.0); Hemoglobin 11.3 g/dL (13.5-17.5); Lymphocytes # (auto) 1.4 10 ^3/uL (0.4-5.4); Lymphocytes % (auto) 16.7 % (10.0-50.0); Mean Corpuscular Hemoglobin 30.5 pg (28.0-32.0); Mean Corpuscular Hgb Conc. 34.1 g/dL (32.0-36.0); Mean Corpuscular Volume 89.3 fL (80.0-100.0); Monocytes # (auto) 0.8 10 ^3/uL (0-1.3); Monocytes % (auto) 9.4 % (0.0-12.0); Neutrophils # (auto) 6.1 10 ^3/uL (1.6-8.6); Neutrophils % (auto) 72.2 % (37.0-80.0); Nucleated Red Blood Cells % 0.2 %; Platelet Count (auto) 361 10^3/uL (140-450); Red Blood Cells 3.71 10^6/uL (4.5-5.90); Red Cell Distribution Width 13.4 % (11.8-14.3); White Blood Cell 8.5 10^3/uL (4.4-10.8)
[2024-05-22 07:33] LABS: Anion Gap 4 (5-15); Carbon Dioxide 26 mmol/L (20-30); Chloride 108 mmol/L (98-107); Potassium 3.8 mmol/L (3.5-5.1); Sodium 138 mmol/L (136-145)
[2024-05-22 07:35] LABS: Calcium 8.5 mg/dL (8.7-10.4)
[2024-05-22 07:40] LABS: BUN/Creatinine Ratio 14.3 (10.0-20.0); Blood Urea Nitrogen 9 mg/dL (9-23)
[2024-05-22 07:41] LABS: Glucose 152 mg/dL (74-106)
[2024-05-22 10:37] LABS: Free T4 (Free Thyroxine) 1.14 ng/dL (0.89-1.76)
[2024-05-22] MEDS: DEXTROSE (50%) 50ML SYRG IV PRN (18:36)
[2024-05-22] MEDS: LEVALBUTEROL HCL 1.25 MG/3 ML NEB NEB SCH (18:51)
[2024-05-23] VITALS (11 sets, daily range): BP systolic 120–164; BP diastolic 57–82; PULSE 69–90; RESP 16–19; TEMP 97.9–98.6; O2SAT 94–100
[2024-05-23 07:06] LABS: RPR Non Reactive (Non Reactive)
[2024-05-24] VITALS (12 sets, daily range): BP systolic 109–131; BP diastolic 59–75; PULSE 69–84; RESP 16–19; TEMP 97.4–98.4; O2SAT 95–100
[2024-05-25] VITALS (11 sets, daily range): BP systolic 110–142; BP diastolic 48–74; PULSE 54–90; RESP 14–20; TEMP 97.7–98.2; O2SAT 95–100
[2024-05-25 16:25] LABS: Chloride 105 mmol/L (98-107); Potassium 4.6 mmol/L (3.5-5.1)
[2024-05-25 16:26] LABS: Anion Gap 4 (5-15); Carbon Dioxide 24 mmol/L (20-30)
[2024-05-25 16:31] LABS: BUN/Creatinine Ratio 18.4 (10.0-20.0); Blood Urea Nitrogen 19 mg/dL (9-23)
[2024-05-25 16:32] LABS: Magnesium 1.7 mg/dL (1.6-2.6)
[2024-05-25 16:35] LABS: Sodium 133 mmol/L (136-145)
[2024-05-25 16:37] LABS: Glucose 427 mg/dL (74-106)
[2024-05-25] MEDS: InsuLIN REG 1unit/0.01ml Soln (100units/ml) SC ONE (17:33)
[2024-05-25] MEDS ORDERED: LORazepam 2MG/ML-1ML VIAL IV ONE (18:00)
[2024-05-25] MEDS ORDERED: PANTOPRAZOLE 40 MG/10 ML VIAL INJ IV SCH (22:00)
[2024-05-26] VITALS (7 sets, daily range): BP systolic 98–136; BP diastolic 68–78; PULSE 60–83; RESP 16–20; TEMP 97.4–98.2; O2SAT 95–100
[2024-05-26] MEDS: metFORMIN HYDROCHLORIDE 850 MG TAB PO SCH (17:43)
[2024-05-27] VITALS (12 sets, daily range): BP systolic 117–133; BP diastolic 64–82; PULSE 57–88; RESP 12–18; TEMP 97.8–98.4; O2SAT 97–100
[2024-05-28] VITALS (11 sets, daily range): BP systolic 93–128; BP diastolic 56–70; PULSE 58–83; RESP 16–18; TEMP 97.7–98.4; O2SAT 97–100
[2024-05-28] MEDS: ZOLPIDEM TARTRATE 5 MG TAB PO PRN (19:43)
[2024-05-29] VITALS (17 sets, daily range): BP systolic 110–144; BP diastolic 56–78; PULSE 66–87; RESP 16–20; TEMP 97.6–98.2; O2SAT 97–100
[2024-05-29] MEDS ORDERED: INSU-567 XX (12:59)
[2024-05-29] MEDS ORDERED: INSLANTI SC (12:59)
[2024-05-29] MEDS ORDERED: BLOO1KIT60 XX (12:59)
[2024-05-29] MEDS ORDERED: METF-371 PO (12:59)
[2024-05-30] VITALS (14 sets, daily range): BP systolic 108–136; BP diastolic 54–79; PULSE 64–90; RESP 16–20; TEMP 97.1–98.4; O2SAT 96–99
[2024-05-30] MEDS ORDERED: CARV-214 PO (10:22)
[2024-05-30] MEDS ORDERED: ASPI-543 PO (10:22)
[2024-05-31] VITALS (9 sets, daily range): BP systolic 107–143; BP diastolic 55–76; PULSE 66–80; RESP 16–20; TEMP 36.7; O2SAT 96–100
== END 2024-05-31 18:52 | disposition home or self-care (01) | DRG 870 ==
LOC: EDBD 16:48 → ER 16:48 → TELE 22:41 → ICU WEST 05-04 06:50 → DOU IN ICU 05-10 15:31 → TELE-CENTR 05-14 18:22 → CENTRAL 05-17 18:48 → WEST WING 05-21 06:50 → UNDODISIN 05-21 15:38
PROVIDERS: ADMIT Nurse Practitioner; ATTEND Nurse Practitioner Acute Care
PROC: 5A1955Z Respiratory Ventilation, Greater than 96 Consecutive Hours (ICD-10-PCS; principal; 2024-05-03)
PROC: 0BH17EZ Insertion of Endotracheal Airway into Trachea, Via Natural or Artificial Opening (ICD-10-PCS; 2024-05-03)
PROC: 02HV33Z Insertion of Infusion Device into Superior Vena Cava, Percutaneous Approach (ICD-10-PCS; 2024-05-03)
PROC: 05H933Z Insertion of Infusion Device into Right Brachial Vein, Percutaneous Approach (ICD-10-PCS; 2024-05-11)
PROC: B54MZZA Ultrasonography of Right Upper Extremity Veins, Guidance (ICD-10-PCS; 2024-05-11)
PROC: 05HC33Z Insertion of Infusion Device into Left Basilic Vein, Percutaneous Approach (ICD-10-PCS; 2024-05-14)
PROC: B54NZZA Ultrasonography of Left Upper Extremity Veins, Guidance (ICD-10-PCS; 2024-05-14)
DX: A41.51 Sepsis due to Escherichia coli [E. coli] (principal); J96.01 Acute respiratory failure with hypoxia; E11.10 Type 2 diabetes mellitus with ketoacidosis without coma; I21.A1 Myocardial infarction type 2; N17.0 Acute kidney failure with tubular necrosis; R57.1 Hypovolemic shock; R65.21 Severe sepsis with septic shock; J15.5 Pneumonia due to Escherichia coli; I50.43 Acute on chronic combined systolic (congestive) and diastolic (congestive) heart failure; G92.8 Other toxic encephalopathy; E87.0 Hyperosmolality and hypernatremia; I42.9 Cardiomyopathy, unspecified; M62.82 Rhabdomyolysis; I13.0 Hypertensive heart and chronic kidney disease with heart failure and stage 1 through stage 4 chronic kidney disease, or unspecified chronic kidney disease; E87.6 Hypokalemia; F17.200 Nicotine dependence, unspecified, uncomplicated; J98.4 Other disorders of lung; E11.42 Type 2 diabetes mellitus with diabetic polyneuropathy; G47.00 Insomnia, unspecified; F39 Unspecified mood [affective] disorder; N18.9 Chronic kidney disease, unspecified; E11.22 Type 2 diabetes mellitus with diabetic chronic kidney disease; Z79.4 Long term (current) use of insulin; Z79.84 Long term (current) use of oral hypoglycemic drugs; Z79.899 Other long term (current) drug therapy
CPT/HCPCS: 31500; 36415; 36600; 70450; 71045; 72170; 73502; 78452; 80048; 80053; 80061; 80202; 80307; 81001; 82010; 82550; 82570; 82607; 82805; 82962; 83036; 83605; 83735; 83880; 83930; 84100; 84132; 84300; 84439; 84443; 84484; 85025; 85610; 85730; 86592; 87040; 87070; 87081; 87086; 87186; 87205; 92507; 92610; 93005; 93017; 93306; 94002; 94003; 94640; 96365; 96367; 96372; 96375; 96376; 97110; 97116; 97163; 97530; 99291; G0378; J0153; J0330; J1815; J2001; J2543; J2704; J3480; J7060

== ENCOUNTER 2024-08-15 14:16 | Emergency (ER) | payer MEDICAID ==
[~2024-08-15] VITALS: Ht 177.8 cm; Wt 75.4 kg
[~2024-08-15 14:16] MED LIST: ASPI-543 PO; BLOO1KIT60 XX; CARV-214 PO; INSLANTI SC; INSU-567 XX; METF-371 PO
--- NOTE | 2024-08-15 14:31 | ECG ---
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
[2024-08-15 14:34] LABS: Basophils # (auto) 0 10 ^3/uL (0-0.2); Basophils % (auto) 0.5 % (0.0-2.0); Eosinophils # (auto) 0.1 10 ^3/uL (0-0.8); Eosinophils % (auto) 0.8 % (0.0-7.0); Hemoglobin 15.7 g/dL (13.5-17.5); Lymphocytes # (auto) 1.9 10 ^3/uL (0.4-5.4); Lymphocytes % (auto) 21.4 % (10.0-50.0); Mean Corpuscular Hemoglobin 30.9 pg (28.0-32.0); Mean Corpuscular Hgb Conc. 34.1 g/dL (32.0-36.0); Mean Corpuscular Volume 90.5 fL (80.0-100.0); Monocytes # (auto) 0.7 10 ^3/uL (0-1.3); Monocytes % (auto) 7.6 % (0.0-12.0); Neutrophils # (auto) 6.1 10 ^3/uL (1.6-8.6); Neutrophils % (auto) 69.7 % (37.0-80.0); Platelet Count (auto) 203 10^3/uL (140-450); Red Blood Cells 5.08 10^6/uL (4.5-5.90); Red Cell Distribution Width 13.1 % (11.8-14.3); White Blood Cell 8.7 10^3/uL (4.4-10.8)
[2024-08-15 15:01] LABS: INR 1.01 (0.9-1.15); Partial Thromboplastin Time 27.3 SEC (24.5-34.5); Prothrombin Time 10.7 sec (9.3-11.8)
--- NOTE | 2024-08-15 15:04 | DVH ---
Procedure: XY CHEST PORTABLE 08/15/2024 02:38 PM Indication: CP. Comparison: XY CHEST PORTABLE on DOS: 05/16/24, XY CHEST XRAY 1 VIEW on DOS: 05/15/24, XY CHEST PORTABL E on DOS: 05/11/24 TECHNIQUE: XY CHEST PORTABLE FINDINGS: Medical devices: None. Cardiomediastinal: The heart is normal in size. Pulmonary vasculature is within normal limits. Athero sclerotic calcification of the aortic arch noted. Lungs: No focal pulmonary opacity is seen. The costophrenic angles are clear. No pneumothorax. Bones/soft tissues: No acute abnormality is noted. IMPRESSION: 1. No acute cardiopulmonary disease.
--- NOTE | 2024-08-15 15:12 | ED.PDOC ---
History of Present Illness HPI Comments 73 y/o M, with a Hx of DM II w/insulin and metformin use, HTN, and NE, presents with c/o chest pain, today. Patient endorses on unprovoked and sudden onset of pain, this morning, and being instructed to come to the ED under advice of his PCP after calling. Patient denies having any shortness of breath, palpitations, nausea, vomiting, fever, chills, or other associated symptoms or modifiers at this time. Chief Complaint: Chest Pain Time Seen by MD: 14:30 Reviewed Notes: Nurses Notes, Medications, Allergies Allergies: Coded Allergies: NO KNOWN ALLERGIES (Unverified , 05/03/24) Home Meds Active Scripts Carvedilol (COREG) 3.125 Mg Tab, 6.25 MG PO Q12HR for 30 Days, #120 TAB 3 Refills Prov:BARBARA MANZANO NP 05/30/24 Aspirin (Aspir-Low) 81 Mg Tab, 81 MG PO DAILY for 30 Days, #30 TAB 3 Refills Prov:BARBARA MANZANO NP 05/30/24 Insulin Syringe/Needle U-100 (ADVOCATE INSULIN SYRINGE/) 0.5 Mg/31 G Mis, MG XX HS, #60 Prov:BARBARA MANZANO NP 05/29/24 Blood Glucose Monitoring Suppl (D-Care Glucometer Kit/Glu W/Device) 1 Kit Kit, KIT XX, #1 Check blood sugars twice a day Prov:BARBARA MANZANO NP 05/29/24 Metformin Hydrochloride (Metformin Hcl) 850 Mg Tab, 850 MG PO BIDWM for 60 Days, #120 TAB Prov:BARBARA MANZANO NP 05/29/24 Insulin Glargine (Lantus) 100 Unit/Ml Inj, 15 UNITS SC HS for 60 Days, #5 INJ Prov:BARBARA MANZANO NP 05/29/24 Information Source: Patient Mode of Arrival: Ambulatory Severity: Moderate Timing: Hours Duration: Since onset Prehospital treatment: None Past Medical History PAST MEDICAL HISTORY: DM (w/insulin and metformin use), HTN, NE (NSTEMI type II) Past Medical History (Other): DKA, metabolic encephalopathy, nephropathy, PNA, acute systolic heart failure, acute hypoxic respiratory failure Surgical History: Denies all surgeries Family History Family History: Unknown Social History Smoker: Non-Smoker Alcohol: Denies ETOH Use Drugs: Denies Drug Use Lives In: Home Constitutional: denies: chills, diaphoresis, fatigue, fever, malaise, sweats, weakness, others EENTM: denies: blurred vision, double vision, ear bleeding, ear discharge, ear drainage, ear pain, ear ringing, eye pain, eye redness, hearing loss, mouth pain, mouth swelling, nasal discharge, nose bleeding, nose congestion, nose pain, photophobia, tearing, throat pain, throat swelling, voice changes, others Respiratory: denies: cough, hemoptysis, orthopnea, SOB at rest, shortness of breath, SOB with excertion, stridor, wheezing, others Cardiovascular: reports: chest pain; denies: dizzy spells, diaphoresis, Dyspnea on exertion, edema, irregular heart beat, left arm pain, lightheadedness, palpitations, PND, syncope, others Gastrointestinal: denies: abdomen distended, abdominal pain, blood streaked bowels, constipated, diarrhea, dysphagia, difficulty swallowing, hematemesis, melena, nausea, poor appetite, poor fluid intake, rectal bleeding, rectal pain, vomiting, others Genitourinary: denies: burning, dysuria, flank pain, frequency, hematuria, incontinence, penile discharge, penile sore, pain, testicle pain, testicle swelling, urgency, others Neurological: denies: dizziness, fainting, headache, left sided numbness, left sided weakness, numbness, paresthesia, pre-existing deficit, right sided numbness, right sided weakness, seizure, speech problems, tingling, tremors, weakness, others Musculoskeletal: denies: back pain, gout, joint pain, joint swelling, muscle pain, muscle stiffness, neck pain, others Integumetry: denies: bruises, change in color, change in hair/nails, dryness, laceration, lesions, lumps, rash, wounds, others Allergic/Immunocompromised: denies: Difficulty Healing, Frequent Infections, Hives, Itching, others Hematologic/Lymphatic: denies: anemia, blood clots, easy bleeding, easy bruising, swollen glands, others Endocrine: denies: excessive hunger, excessive sweating, excessive thirst, excessive urination, flushing, intolerance to cold, intolerance to heat, unexplained weight gain, unexplained weight loss, others Psychiatric: denies: anxiety, bipolar disorder, depression, hopeless, panic disorder, schizophrenia, sleepless, suicidal, others All Other Systems: Reviewed and Negative Physical Exam General Appearance: Moderate Distress HEENT: Normal ENT Inspection, Pharynx Normal, TMs Normal Neck: Full Range of Motion, Non-Tender, Normal, Normal Inspection Respiratory: Chest Non-Tender, Lungs Clear, No Accessory Muscle Use, No Respiratory Distress, Normal Breath Sounds Cardiovascular: No Edema, No JVD, No Murmur, No Gallop, Normal Peripheral Pulses, Regular Rate/Rhythm Breast Exam: Deferred Gastrointestinal: No Organomegaly, Non Tender, No Pulsatile Mass, Normal Bowel Sounds, Soft Genitalia: Deferred Pelvic: Deferred Rectal: Deferred Extremities: No calf tenderness, Normal capillary refill, Normal inspection, Normal range of motion, Non-tender, No pedal edema Musculoskeletal : Apperance: Normal Neurologic: Alert, 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 Was a procedure done?: No EKG EKG : Pulse Rate (adult): 83 [place]: Normal Cardiac Rhythm: NSR Block: None Hypertrophy: None ST: Normal Differential Dx Considerations may include: NE, PE, ACS, angina, costochondritis, pericarditis, gastritis, gastroenteritis, viral syndrome, anxiety X-Ray, Labs, Meds, VS Vital Signs Date Time Temp Pulse Resp B/P (MAP) Pulse Ox O2 Delivery O2 Flow Rate FiO2 08/15/24 15:12 83 08/15/24 15:06 97.5 78 16 153/91 (111) 98 Lab Test 08/15/24 15:38 08/15/24 14:25 Range/Units Troponin I High Sensitivity Pending 9 </=54 ng/L White Blood Count 8.7 4.4-10.8 10^3/uL Red Blood Count 5.08 4.5-5.90 10^6/uL Hemoglobin 15.7 13.5-17.5 g/dL Hematocrit 46.0 41.0-53.0 % Mean Corpuscular Volume 90.5 80.0-100.0 fL Mean Corpuscular Hemoglobin 30.9 28.0-32.0 pg Mean Corpuscular Hemoglobin Concent 34.1 32.0-36.0 g/dL Red Cell Distribution Width 13.1 11.8-14.3 % Platelet Count 203 140-450 10^3/uL Mean Platelet Volume 10.5 6.9-10.8 fL Neutrophils (%) (Auto) 69.7 37.0-80.0 % Lymphocytes (%) (Auto) 21.4 10.0-50.0 % Monocytes (%) (Auto) 7.6 0.0-12.0 % Eosinophils (%) (Auto) 0.8 0.0-7.0 % Basophils (%) (Auto) 0.5 0.0-2.0 % Neutrophils # (Auto) 6.1 1.6-8.6 10 ^3/uL Lymphocytes # (Auto) 1.9 0.4-5.4 10 ^3/uL Monocytes # (Auto) 0.7 0-1.3 10 ^3/uL Eosinophils # (Auto) 0.1 0-0.8 10 ^3/uL Basophils # (Auto) 0 0-0.2 10 ^3/uL Nucleated Red Blood Cells 0.0 % Prothrombin Time 10.7 9.3-11.8 sec Prothrombin Time INR 1.01 0.9-1.15 Activated Partial Thromboplast Time 27.3 24.5-34.5 SEC Sodium Level 139 136-145 mmol/L Potassium Level 4.7 3.5-5.1 mmol/L Chloride Level 106 98-107 mmol/L Carbon Dioxide Level 26 20-31 mmol/L Anion Gap 7 5-15 Blood Urea Nitrogen 32 H 9-23 mg/dL Creatinine 1.17 0.700-1.30 mg/dL Glomerular Filtration Rate Calc 65 >90 mL/min BUN/Creatinine Ratio 27.4 H 10.0-20.0 Serum Glucose 209 H 74-106 mg/dL Calcium Level 10.2 8.7-10.4 mg/dL Magnesium Level 2.0 1.6-2.6 mg/dL Total Bilirubin 0.3 0.2-1.0 mg/dL Aspartate Amino Transferase (AST) 22 13-40 U/L Alanine Aminotransferase (ALT) 47 H 7-40 U/L Alkaline Phosphatase 90 46-116 U/L B-Type Natriuretic Peptide 46.53 0-100 pg/mL Total Protein 7.0 5.7-8.2 g/dL Albumin 4.3 3.2-4.8 g/dL Patient alert. Complaining of chest pain. Vitals stable. Answering questions. Continues to have chest pain. Was given aspirin. Was given nitro. Has strong cardiac risk factors. WBC within normal limits pain EKG reviewed does not show any acute changes. Cardiac marker within normal limits. Reviewed his previous visit. Explained to the patient. Continue cardiac monitoring. Chest x-ray reviewed does not show any acute changes. Time of 1ST Reevaluation: 15:00 Reevaluation 1ST: Unchanged Patient Education/Counseling: Diagnosis, Treatment Family Education/Counseling: No Family Present Departure 1 Departure Time of Disposition: 16:02 Impression: Primary Impression: Chest pain of unknown etiology Additional Impressions: Uncontrolled diabetes mellitus Qualified Codes: E13.65 - Other specified diabetes mellitus with hyperglycemia HTN (hypertension) Qualified Codes: I10 - Essential (primary) hypertension Disposition: ADMITTED INPATIENT Admit to: Med Surg Condition: Guarded Critical Care Note Critical Care Time?: Yes (45 min-critical care time only) Stability Stability form required: No Heart Score Heart Score: Heart Score Response (Comments) Value History Slightly Suspicious 0 EKG Normal 0 Age >65 2 Risk Factors >3 or Hx ASHD 2 Troponin Normal limit 0 Total 4 I personally scribed for JANEY NOONAN MD ([email or web address]) on 08/15/24 at 15:12. Electronically submitted by Marlon Epstein [email or web address]). JANEY NOONAN MD Aug 15, 2024 15:12
[2024-08-15 16:01] LABS: Alanine Aminotransferase 47 U/L (7-40); Albumin 4.3 g/dL (3.2-4.8); Alkaline Phosphatase 90 U/L (46-116); Anion Gap 7 (5-15); Aspartate Aminotransferase 22 U/L (13-40); BUN/Creatinine Ratio 27.4 (10.0-20.0); Blood Urea Nitrogen 32 mg/dL (9-23); Calcium 10.2 mg/dL (8.7-10.4); Carbon Dioxide 26 mmol/L (20-31); Chloride 106 mmol/L (98-107); Glucose 209 mg/dL (74-106); Potassium 4.7 mmol/L (3.5-5.1); Sodium 139 mmol/L (136-145)
[2024-08-15 16:02] LABS: Bilirubin, Total 0.3 mg/dL (0.2-1.0)
[2024-08-15] MEDS: ASPirin 325 MG TAB PO ONE (18:37)
[2024-08-15] MEDS: NITROGLYCERIN 0.4 MG SL TAB SL ONE (18:37)
[2024-08-15 18:38] VITALS: BP 116/75; PULSE 77; RESP 16; TEMP 98.3; O2SAT 96
[2024-08-15] MEDS ORDERED: LOS25T PO (18:39)
[2024-08-15] MEDS ORDERED: NITROGLYCERIN 0.4 MG SL TAB SL PRN (18:45)
[2024-08-15] MEDS ORDERED: DEXTROSE (50%) 50ML SYRG IV PRN (18:45)
[2024-08-15] MEDS ORDERED: MORPHINE SULFATE INJ 2 MG/ml SYRG IV PRN (18:45)
--- NOTE | 2024-08-15 18:59 | DVHINCON2 ---
Date of service: Aug 15, 2024 Referring Physician Vanessa Reason for Consultation Admission History of Present Illness 73-year-old male presented to the ED with chief complaint of chest pain today. Patient states he was having unprovoked and sudden onset pain this morning and was instructed to come to the ED under advice of his primary care provider. Patient denies shortness of breath, palpitation, nausea, vomiting, fever, chills or other associated symptoms at this time. I discussed with the patient admission, and patient declined to stay, patient states that he has an appointment with Dr. Rey sandoval this week for echocardiogram, stress test and other cardiac testing, patient no longer has chest pain, cardiac markers were negative, discussed the importance of staying for further workup with the patient, but patient did not want to stay overnight. Allergies: Coded Allergies: NO KNOWN ALLERGIES (Unverified , 05/03/24) Home Meds Active Scripts Carvedilol (COREG) 3.125 Mg Tab, 6.25 MG PO Q12HR for 30 Days, #120 TAB 3 Refills Prov:BARBARA MANZANO NP 05/30/24 Aspirin (Aspir-Low) 81 Mg Tab, 81 MG PO DAILY for 30 Days, #30 TAB 3 Refills Prov:BARBARA MANZANO NP 05/30/24 Insulin Syringe/Needle U-100 (ADVOCATE INSULIN SYRINGE/) 0.5 Mg/31 G Mis, MG XX HS, #60 Prov:BARBARA MANZANO NP 05/29/24 Blood Glucose Monitoring Suppl (D-Care Glucometer Kit/Glu W/Device) 1 Kit Kit, KIT XX, #1 Check blood sugars twice a day Prov:BARBARA MANZANO NP 05/29/24 Metformin Hydrochloride (Metformin Hcl) 850 Mg Tab, 850 MG PO BIDWM for 60 Days, #120 TAB Prov:BARBARA MANZANO NP 05/29/24 Insulin Glargine (Lantus) 100 Unit/Ml Inj, 15 UNITS SC HS for 60 Days, #5 INJ Prov:BARBARA MANZANO NP 05/29/24 Reported Medications Losartan Potassium (Losartan Potassium) 25 Mg Tab, 1 TAB PO DAILY 08/15/24 Current Medications Current Medications Medications (Trade) Dose Ordered Sig/Nicki Route PRN Reason Start Time Stop Time Status Last Admin Nitroglycerin (Ntrostat Sublingual) 0.4 mg Q5MINP PRN SL FOR CHEST PAIN 08/15/24 18:45 08/15/24 18:54 DC Morphine Sulfate 2 mg Q30M PRN IV FOR CHEST PAIN 08/15/24 18:45 08/15/24 18:53 DC Diagnostic Test (Pha) (Accu-Chek Comfort Curve T) 1 strip ACHS 08/15/24 22:00 08/15/24 18:54 DC Insulin Human Regular (InsuLIN R) HS SC 08/15/24 22:00 08/15/24 18:54 DC Insulin Human Regular (InsuLIN R) AC SC 08/16/24 07:00 08/15/24 18:54 DC Dextrose 50 ml UD PRN IV Blood Sugar LESS THAN 60 08/15/24 18:45 08/15/24 18:54 DC Vital Signs Vital Signs Date Time Temp Pulse Resp B/P (MAP) Pulse Ox O2 Delivery O2 Flow Rate FiO2 08/15/24 18:38 77 16 96 Room Air* 0 21 08/15/24 18:38 98.3 116/75 (89) 98.3 Labs/Diagnostic Data Labs Test 08/15/24 17:54 08/15/24 14:25 Range/Units Troponin I High Sensitivity 9 </=54 ng/L White Blood Count 8.7 4.4-10.8 10^3/uL Red Blood Count 5.08 4.5-5.90 10^6/uL Hemoglobin 15.7 13.5-17.5 g/dL Hematocrit 46.0 41.0-53.0 % Mean Corpuscular Volume 90.5 80.0-100.0 fL Mean Corpuscular Hemoglobin 30.9 28.0-32.0 pg Mean Corpuscular Hemoglobin Concent 34.1 32.0-36.0 g/dL Red Cell Distribution Width 13.1 11.8-14.3 % Platelet Count 203 140-450 10^3/uL Mean Platelet Volume 10.5 6.9-10.8 fL Neutrophils (%) (Auto) 69.7 37.0-80.0 % Lymphocytes (%) (Auto) 21.4 10.0-50.0 % Monocytes (%) (Auto) 7.6 0.0-12.0 % Eosinophils (%) (Auto) 0.8 0.0-7.0 % Basophils (%) (Auto) 0.5 0.0-2.0 % Neutrophils # (Auto) 6.1 1.6-8.6 10 ^3/uL Lymphocytes # (Auto) 1.9 0.4-5.4 10 ^3/uL Monocytes # (Auto) 0.7 0-1.3 10 ^3/uL Eosinophils # (Auto) 0.1 0-0.8 10 ^3/uL Basophils # (Auto) 0 0-0.2 10 ^3/uL Nucleated Red Blood Cells 0.0 % Prothrombin Time 10.7 9.3-11.8 sec Prothrombin Time INR 1.01 0.9-1.15 Activated Partial Thromboplast Time 27.3 24.5-34.5 SEC Sodium Level 139 136-145 mmol/L Potassium Level 4.7 3.5-5.1 mmol/L Chloride Level 106 98-107 mmol/L Carbon Dioxide Level 26 20-31 mmol/L Anion Gap 7 5-15 Blood Urea Nitrogen 32 H 9-23 mg/dL Creatinine 1.17 0.700-1.30 mg/dL Glomerular Filtration Rate Calc 65 >90 mL/min BUN/Creatinine Ratio 27.4 H 10.0-20.0 Serum Glucose 209 H 74-106 mg/dL Calcium Level 10.2 8.7-10.4 mg/dL Magnesium Level 2.0 1.6-2.6 mg/dL Total Bilirubin 0.3 0.2-1.0 mg/dL Aspartate Amino Transferase (AST) 22 13-40 U/L Alanine Aminotransferase (ALT) 47 H 7-40 U/L Alkaline Phosphatase 90 46-116 U/L B-Type Natriuretic Peptide 46.53 0-100 pg/mL Total Protein 7.0 5.7-8.2 g/dL Albumin 4.3 3.2-4.8 g/dL Assessment Admit to telemetry Cardiology consult Patient declined and left AMA Plan discussed with: [facility] Aug 15, 2024 18:59
--- NOTE | 2024-08-15 20:25 | ECG ---
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
[2024-08-15] MEDS ORDERED: ACCU-CHEK COMFORT CURVE STRIP VI SCH (22:00)
[2024-08-15] MEDS ORDERED: InsuLIN REG 1unit/0.01ml Soln (100units/ml) SC SCH (22:00)
[2024-08-16] MEDS ORDERED: InsuLIN REG 1unit/0.01ml Soln (100units/ml) SC SCH (07:00)
== END 2024-08-15 18:42 | disposition admitted as inpatient to this hospital (09) ==
LOC: ER 14:16 → UNDOADMIN 18:35 → TELE 18:35 → ER 18:42
DX: I11.0 Hypertensive heart disease with heart failure (principal); R07.89 Other chest pain; E11.65 Type 2 diabetes mellitus with hyperglycemia; E11.21 Type 2 diabetes mellitus with diabetic nephropathy; I21.A1 Myocardial infarction type 2; I50.21 Acute systolic (congestive) heart failure; Z79.899 Other long term (current) drug therapy
CPT/HCPCS: 36415; 71045; 80053; 83735; 83880; 84484; 85025; 85610; 85730; 93005

== ENCOUNTER 2024-11-18 06:17 | Inpatient (IN) | payer MEDICARE, MEDICAID ==
[~2024-11-18] VITALS: Ht 177.8 cm; Wt 74.9 kg
[~2024-11-18 06:17] MED LIST changes: +LOS25T PO
--- NOTE | 2024-11-18 06:51 | ED.PDOC ---
Psychiatric HPI Comments 74M BIBA w/ prior Hx of metabolic encephalopathy, nephropathy and DM which all may be associated to the c/c of gen weak. EMS report that they found the pt on scene on the ground by the . The on scene stated to EMS "he is failure to thrive". EMS note that the Pt's BS on scene was 325 and that the pt took 25 units of insulin last night. Pt states "my leg's don't seem to be working" and that he is currently living w/ his brother. Pt states that he has ABD pain "only when I cough" as well as having pain on his feet due from neuropathy. PMHx of HTN, ID, DKA,DKA, PNA, acute systolic heart failure and acute hypoxic respiratory failure. Denies chills,fever, N/V/D, SOB, CP or other associated symptom's, modifiers, or recent injuries or sick contact at this time. Chief Complaint: Failure to Thrive Time Seen by MD: 06:30 Reviewed Notes: Nurses Notes, A And P Mechanic Notes, Medications, Allergies Information Source: Patient, Emergency Med Personnel Mode of Arrival: EMS Severity: Unable to Care for Self Severity of Pain: Moderate Severity of Mental Status: None Severity of Symptoms: Moderate Timing: Hours Duration: Since onset, Hours Prehospital treatment: None Ingestion: None Current substance abuse: None History of: None Quality: Hopelessness Location: Leg (bilateral) Location of pain or injury: Leg (Bilateral) Associated signs and symptoms: None Past Medical History PAST MEDICAL HISTORY: DM, HTN, ID Past Medical History (Other): DKA, metabolic encephalopathy, nephropathy, PNA, acute systolic heart failure, acute hypoxic respiratory failure Surgical History: Denies all surgeries Family History Family History: Reviewed,noncontributory to illness, Unknown Social History Smoker: Non-Smoker Alcohol: Denies ETOH Use Drugs: Denies Drug Use Lives In: Home Constitutional: reports: weakness; denies: chills, diaphoresis, fatigue, fever, malaise, sweats, others EENTM: denies: blurred vision, double vision, ear bleeding, ear discharge, ear drainage, ear pain, ear ringing, eye pain, eye redness, hearing loss, mouth pain, mouth swelling, nasal discharge, nose bleeding, nose congestion, nose pain, photophobia, tearing, throat pain, throat swelling, voice changes, others Respiratory: denies: cough, hemoptysis, orthopnea, SOB at rest, shortness of breath, SOB with excertion, stridor, wheezing, others Cardiovascular: denies: chest pain, dizzy spells, diaphoresis, Dyspnea on exertion, edema, irregular heart beat, left arm pain, lightheadedness, palpitations, PND, syncope, others Gastrointestinal: denies: abdomen distended, abdominal pain, blood streaked bowels, constipated, diarrhea, dysphagia, difficulty swallowing, hematemesis, melena, nausea, poor appetite, poor fluid intake, rectal bleeding, rectal pain, vomiting, others Genitourinary: denies: burning, dysuria, flank pain, frequency, hematuria, incontinence, penile discharge, penile sore, pain, testicle pain, testicle swelling, urgency, others Neurological: denies: dizziness, fainting, headache, left sided numbness, left sided weakness, numbness, paresthesia, pre-existing deficit, right sided numbness, right sided weakness, seizure, speech problems, tingling, tremors, weakness, others Musculoskeletal: denies: back pain, gout, joint pain, joint swelling, muscle pain, muscle stiffness, neck pain, others Integumetry: denies: bruises, change in color, change in hair/nails, dryness, laceration, lesions, lumps, rash, wounds, others Allergic/Immunocompromised: denies: Difficulty Healing, Frequent Infections, Hives, Itching, others Hematologic/Lymphatic: denies: anemia, blood clots, easy bleeding, easy bruising, swollen glands, others Endocrine: denies: excessive hunger, excessive sweating, excessive thirst, excessive urination, flushing, intolerance to cold, intolerance to heat, unexplained weight gain, unexplained weight loss, others Psychiatric: denies: anxiety, bipolar disorder, depression, hopeless, panic disorder, schizophrenia, sleepless, suicidal, others All Other Systems: Reviewed and Negative Physical Exam General Appearance: Moderate Distress, Normal HEENT: Normal ENT Inspection, PERRL/EOMI, Pharynx Normal, TMs Normal Neck: Full Range of Motion, Non-Tender, Normal, Normal Inspection Respiratory: Chest Non-Tender, Lungs Clear, No Accessory Muscle Use, No Respiratory Distress, Normal Breath Sounds Cardiovascular: No Edema, No JVD, No Murmur, No Gallop, Normal Peripheral Pulses, Regular Rate/Rhythm Breast Exam: Deferred Gastrointestinal: No Organomegaly, Non Tender, No Pulsatile Mass, Normal Bowel Sounds, Soft, Other (obesity) Genitalia: Deferred Pelvic: Deferred Rectal: Deferred Extremities: No calf tenderness, Normal capillary refill, Normal inspection, Normal range of motion, Non-tender, No pedal edema Musculoskeletal : Apperance: Normal Neurologic: Alert, advertising space clerk II-XII nml as Tested, Motor Weakness, Normal Affect, Normal Mood, No Sensory Deficits Cerebellar Function: NOT DONE Reflexes: NOT DONE Skin: Dry, Normal Color, Warm, Other (Both feet extremely dirty and need to be cleaned) Peripheral Pulses: 1+ carotid (R), 1+ carotid (L) Lymphatic: No Adenopathy EKG EKG : Pulse Rate (adult): 91 [place]: Normal Cardiac Rhythm: NSR Was a procedure done? Was a procedure done?: No Psych Differential Dx OD Differential Dx: Renal Failure Intoxication Differential Dx: Dehydration, Depression, Electrolyte Imbalance, Personality Disorder, Other (General weakness possible Alzheimer's neuropathy diabetes uncontrolled) X-Ray, Labs, Meds, VS Vital Signs Date Time Temp Pulse Resp B/P (MAP) Pulse Ox O2 Delivery O2 Flow Rate FiO2 11/18/24 07:58 97.9 85 17 155/79 (104) 95 97.9 11/18/24 07:58 85 17 95 Room Air* 0 21 11/18/24 07:17 91 11/18/24 06:23 98.6 91 18 149/86 (107) 95 11/18/24 06:17 91 Lab Test 11/18/24 07:32 Range/Units White Blood Count 8.5 4.4-10.8 10^3/uL Red Blood Count 4.96 4.5-5.90 10^6/uL Hemoglobin 14.8 13.5-17.5 g/dL Hematocrit 43.9 41.0-53.0 % Mean Corpuscular Volume 88.5 80.0-100.0 fL Mean Corpuscular Hemoglobin 29.8 28.0-32.0 pg Mean Corpuscular Hemoglobin Concent 33.7 32.0-36.0 g/dL Red Cell Distribution Width 14.3 11.8-14.3 % Platelet Count 169 140-450 10^3/uL Mean Platelet Volume 11.0 H 6.9-10.8 fL Neutrophils (%) (Auto) 78.0 37.0-80.0 % Lymphocytes (%) (Auto) 9.4 L 10.0-50.0 % Monocytes (%) (Auto) 12.4 H 0.0-12.0 % Eosinophils (%) (Auto) 0.0 0.0-7.0 % Basophils (%) (Auto) 0.2 0.0-2.0 % Neutrophils # (Auto) 6.6 1.6-8.6 10 ^3/uL Lymphocytes # (Auto) 0.8 0.4-5.4 10 ^3/uL Monocytes # (Auto) 1.1 0-1.3 10 ^3/uL Eosinophils # (Auto) 0 0-0.8 10 ^3/uL Basophils # (Auto) 0 0-0.2 10 ^3/uL Nucleated Red Blood Cells 0.2 % Sodium Level 137 136-145 mmol/L Potassium Level 4.3 3.5-5.1 mmol/L Chloride Level 104 98-107 mmol/L Carbon Dioxide Level 18 L 20-31 mmol/L Anion Gap 15 5-15 Blood Urea Nitrogen 22 9-23 mg/dL Creatinine 1.14 0.700-1.30 mg/dL Glomerular Filtration Rate Calc 67 >90 mL/min BUN/Creatinine Ratio 19.3 10.0-20.0 Serum Glucose 287 H 74-106 mg/dL Calcium Level 9.4 8.7-10.4 mg/dL Magnesium Level 2.0 1.6-2.6 mg/dL Total Bilirubin 0.4 0.2-1.0 mg/dL Aspartate Amino Transferase (AST) 78 H 13-40 U/L Alanine Aminotransferase (ALT) 38 7-40 U/L Alkaline Phosphatase 82 46-116 U/L Troponin I High Sensitivity 42 </=54 ng/L Total Protein 6.4 5.7-8.2 g/dL Albumin 4.1 3.2-4.8 g/dL Current Medications Medications (Trade) Dose Ordered Sig/Nicki Route Start Time Stop Time Status Last Admin Sodium Chloride 1,000 ml @ 1,000 mls/hr Q1H ONCE IV 11/18/24 06:45 11/18/24 07:44 DC 11/18/24 07:28 X-Ray, Labs, Meds, VS Comment Course in the emergency department eventful patient came in because of generalized weakness and inability to walk today he is also found on the floor in a mess at home The chest x-ray is normal EKG shows normal sinus rhythm at 91 CBC normal CMP blood sugar 287 Magnesium 2.0 Troponin 42 Patient will be admitted for further Time of 1ST Reevaluation: 07:00 Reevaluation 1ST: Unchanged Patient Education/Counseling: Diagnosis, Treatment, Prognosis Family Education/Counseling: No Family Present Departure 1 Departure Time of Disposition: 09:17 Impression: Primary Impression: Generalized weakness Additional Impressions: Uncontrolled diabetes mellitus Qualified Codes: E11.65 - Type 2 diabetes mellitus with hyperglycemia Neuropathic pain, leg, bilateral Inability to bear weight Disposition: ADMITTED INPATIENT Admit to: Med Surg Condition: Fair Critical Care Note Critical Care Time?: No Stability Stability form required: Yes Unstable for transfer: Requires medication (Requires Med for stabilization) Heart Score Heart Score: Heart Score Response (Comments) Value History Slightly Suspicious 0 EKG Normal 0 Age >65 2 Risk Factors 1 or 2 risk factors 1 Troponin Normal limit 0 Total 3 I personally scribed for LESLEY ROWAN MD ([email or web address]) on 11/18/24 at 06:51. Electronically submitted by Sachin Martinez ([email or web address]). LESLEY ROWAN MD Nov 18, 2024 06:51
[2024-11-18] MEDS: SODIUM CHLORIDE 0.9% 1,000 ML IV ONE (07:28)
[2024-11-18 07:58] VITALS: PULSE 85; RESP 17; O2SAT 95
--- NOTE | 2024-11-18 08:01 | DVH ---
EXAM: XR Chest, 1 View CLINICAL INDICATION: Generalized weakness TECHNIQUE: Frontal view of the chest. COMPARISON: XY CHEST PORTABLE on DOS: 08/15/24, XY CHEST PORTABLE on DOS: 05/16/24, XY CHEST XRAY 1 VIEW on DOS: 05/15/24, XY CHEST PORTABLE on DOS: 05/11/24, XY CHEST PORTABLE on DOS: 05/08/24 FINDINGS: LUNGS AND PLEURAL SPACES: Unremarkable. No consolidation. No pneumothorax. HEART: Unremarkable. No cardiomegaly. MEDIASTINUM: Unremarkable. Normal mediastinal contour. BONES/JOINTS: Unremarkable. No acute fracture. OTHER FINDINGS: . None. . . .. IMPRESSION: No acute cardiopulmonary process.
[2024-11-18 08:15] LABS: Basophils # (auto) 0 10 ^3/uL (0-0.2); Basophils % (auto) 0.2 % (0.0-2.0); Eosinophils # (auto) 0 10 ^3/uL (0-0.8); Hematocrit 43.9 % (41.0-53.0); Hemoglobin 14.8 g/dL (13.5-17.5); Lymphocytes # (auto) 0.8 10 ^3/uL (0.4-5.4); Lymphocytes % (auto) 9.4 % (10.0-50.0); Mean Corpuscular Hemoglobin 29.8 pg (28.0-32.0); Mean Corpuscular Hgb Conc. 33.7 g/dL (32.0-36.0); Mean Corpuscular Volume 88.5 fL (80.0-100.0); Monocytes # (auto) 1.1 10 ^3/uL (0-1.3); Monocytes % (auto) 12.4 % (0.0-12.0); Neutrophils # (auto) 6.6 10 ^3/uL (1.6-8.6); Nucleated Red Blood Cells % 0.2 %; Platelet Count (auto) 169 10^3/uL (140-450); Red Blood Cells 4.96 10^6/uL (4.5-5.90); Red Cell Distribution Width 14.3 % (11.8-14.3); White Blood Cell 8.5 10^3/uL (4.4-10.8)
[2024-11-18 08:25] LABS: Alanine Aminotransferase 38 U/L (7-40); Albumin 4.1 g/dL (3.2-4.8); Alkaline Phosphatase 82 U/L (46-116); Anion Gap 15 (5-15); BUN/Creatinine Ratio 19.3 (10.0-20.0); Blood Urea Nitrogen 22 mg/dL (9-23); Calcium 9.4 mg/dL (8.7-10.4); Chloride 104 mmol/L (98-107); Potassium 4.3 mmol/L (3.5-5.1); Sodium 137 mmol/L (136-145); Total Protein 6.4 g/dL (5.7-8.2)
[2024-11-18 08:29] LABS: Aspartate Aminotransferase 78 U/L (13-40); Bilirubin, Total 0.4 mg/dL (0.2-1.0); Carbon Dioxide 18 mmol/L (20-31); Glucose 287 mg/dL (74-106)
[2024-11-18] MEDS ORDERED: DEXTROSE (50%) 50ML SYRG IV PRN (10:00)
[2024-11-18] MEDS ORDERED: ONDANSETRON HCL 4 MG/2 ML VIAL IV PRN (10:00)
[2024-11-18] MEDS ORDERED: ACETAMINOPHEN 325 MG TAB PO PRN (10:00)
--- NOTE | 2024-11-18 10:07 | DVHHP2 ---
History of Present Illness Reason for Visit: Generalized weakness History of Present Illness Scott Trujillo is a 74-year-old male with past medical history of hypertension, diabetes, neuropathy, nephropathy, ME with no stents, DKA, pneumonia, systolic heart failure, acute hypoxic respiratory failure who presents to the ED with gen eralized weakness and failure to thrive. Patient reports that he was found in the bathroom on the ground by his cousin and states that his legs had just given out. Patient does not recall if his head or body parts was struck and states that he has been feeling weak for the last day. Patient reports that he lives at home with his brother. He denies smoking, illicit drug use, and drinking. Patient denies chest pain, shortness of breath, abdominal pain, nausea, vomiting, diarrhea, fever, chills, recent travels, recent illnesses, and recent sick contacts. Patient states that he does see a help desk support in [facility] unsure of the name. Patient also reports that he was seeing physical therapy after his ME and was using a front wheel walker but no longer needs it now. States that he is able to ambulate just fine. Cardiovascular: HTN, ME Endocrine: Diabetes Past Medical History Neuropathy Nephropathy TKA Pneumonia Systolic heart failure Acute hypoxic respiratory failure Past Surgical History: None Family History: DM, Other (Brother with diabetes) Smoke: No ALCOHOL: none Drugs: None Lives: with Family Domestic Violence: Neg Review of Systems Constitutional: Yes: Weakness, Other (Syncope); No: Fever, Chills, Sweats, Malaise Eyes: No: Pain, Vision change, Conjunctivae inflammation, Eyelid inflammation, Other, Redness ENT: No: Ear pain, Ear discharge, Nose pain, Nose discharge, Nose congestion, Mouth pain, Mouth swelling, Throat pain, Throat swelling, Other Respiratory: No: Cough, Dry, Shortness of breath, SOB with excertion, Wheezing, Hemoptysis, Pleuritic Pain, Sputum, Wheezing, Other Cardiovascular: No: Chest Pain, Palpitations, Orthopnea, Paroxysmal Noc. Dyspnea, Edema, Lt Headedness, Other Gastrointestinal: No: Nausea, Vomiting, Abdominal Pain, Diarrhea, Constipation, Melena, Hematochezia, Other Genitourinary: No Dysuria, No Frequency, No Incontinence, No Hematuria, No Retention, No Other Musculoskeletal: No: other, neck pain, shoulder pain, arm pain, back pain, hand pain, leg pain, foot pain Skin: No: Rash, Lesions, Jaundice, Bruising, Other Neurological: No: Weakness, Numbness, Incoordination, Change in speech, Confusion, Seizures, Other Allergies: Coded Allergies: NO KNOWN ALLERGIES (Unverified , 05/03/24) Exam Vital Signs Vital Signs Date Time Temp Pulse Resp B/P (MAP) Pulse Ox O2 Delivery O2 Flow Rate FiO2 11/18/24 07:58 97.9 85 17 155/79 (104) 95 97.9 11/18/24 07:58 Room Air* 0 21 General Appearance: Alert, Oriented X3, Cooperative, No acute distress HEENT: Atraumatic, PERRLA, EOMI, Mucous membr. moist/pink Respiratory: Clear to auscultation, Normal air movement Cardiovascular: Regular rate, Normal S1, Normal S2, No murmurs Abdominal: Normal bowel sounds, Soft, No tenderness, No hepatospenomegaly, No masses Extremities: No clubbing, No cyanosis, No edema, Normal pulses, No tenderness/swelling Skin: No significant lesion Neuro: Normal speech, Strength at 5/5 X4 ext, Normal tone, Sensation intact Psych/Mental Status: Mental status NL, Mood NL Labs/Xrays Labs Test 11/18/24 07:32 Range/Units White Blood Count 8.5 4.4-10.8 10^3/uL Red Blood Count 4.96 4.5-5.90 10^6/uL Hemoglobin 14.8 13.5-17.5 g/dL Hematocrit 43.9 41.0-53.0 % Mean Corpuscular Volume 88.5 80.0-100.0 fL Mean Corpuscular Hemoglobin 29.8 28.0-32.0 pg Mean Corpuscular Hemoglobin Concent 33.7 32.0-36.0 g/dL Red Cell Distribution Width 14.3 11.8-14.3 % Platelet Count 169 140-450 10^3/uL Mean Platelet Volume 11.0 H 6.9-10.8 fL Neutrophils (%) (Auto) 78.0 37.0-80.0 % Lymphocytes (%) (Auto) 9.4 L 10.0-50.0 % Monocytes (%) (Auto) 12.4 H 0.0-12.0 % Eosinophils (%) (Auto) 0.0 0.0-7.0 % Basophils (%) (Auto) 0.2 0.0-2.0 % Neutrophils # (Auto) 6.6 1.6-8.6 10 ^3/uL Lymphocytes # (Auto) 0.8 0.4-5.4 10 ^3/uL Monocytes # (Auto) 1.1 0-1.3 10 ^3/uL Eosinophils # (Auto) 0 0-0.8 10 ^3/uL Basophils # (Auto) 0 0-0.2 10 ^3/uL Nucleated Red Blood Cells 0.2 % Sodium Level 137 136-145 mmol/L Potassium Level 4.3 3.5-5.1 mmol/L Chloride Level 104 98-107 mmol/L Carbon Dioxide Level 18 L 20-31 mmol/L Anion Gap 15 5-15 Blood Urea Nitrogen 22 9-23 mg/dL Creatinine 1.14 0.700-1.30 mg/dL Glomerular Filtration Rate Calc 67 >90 mL/min BUN/Creatinine Ratio 19.3 10.0-20.0 Serum Glucose 287 H 74-106 mg/dL Calcium Level 9.4 8.7-10.4 mg/dL Magnesium Level 2.0 1.6-2.6 mg/dL Total Bilirubin 0.4 0.2-1.0 mg/dL Aspartate Amino Transferase (AST) 78 H 13-40 U/L Alanine Aminotransferase (ALT) 38 7-40 U/L Alkaline Phosphatase 82 46-116 U/L Troponin I High Sensitivity 42 </=54 ng/L Total Protein 6.4 5.7-8.2 g/dL Albumin 4.1 3.2-4.8 g/dL EXAM: XR Chest, 1 View CLINICAL INDICATION: Generalized weakness TECHNIQUE: Frontal view of the chest. COMPARISON: XY CHEST PORTABLE on DOS: 08/15/24, XY CHEST PORTABLE on DOS: 05/16/24, XY CHEST XRAY 1 VIEW on DOS: 05/15/24, XY CHEST PORTABLE on DOS: 05/11/24, XY CHEST PORTABLE on DOS: 05/08/24 FINDINGS: LUNGS AND PLEURAL SPACES: Unremarkable. No consolidation. No pneumothorax. HEART: Unremarkable. No cardiomegaly. MEDIASTINUM: Unremarkable. Normal mediastinal contour. BONES/JOINTS: Unremarkable. No acute fracture. OTHER FINDINGS: . None. . . .. IMPRESSION: No acute cardiopulmonary process. ORDERING PHYSICIAN: ARLIN RUTH PROCEDURE(s): HWOCT - HEAD WITHOUT CONTRAST REASON: trauma ORDER NUMBER(s): [id number], ACCESSION NUMBER(s): [id number] EXAM: CT Head Without Intravenous Contrast CLINICAL INDICATION: trauma TECHNIQUE: Axial computed tomography images of the head/brain without intravenous contrast. This CT exam was performed using one or more of the following dose reduction techniques: automated exposure control, adjustment of the mA and/or kV according to patient size, and/or use of iterative reconstruction technique. CONTRAST: COMPARISON: CT HEAD WITHOUT CONTRAST on DOS: 05/03/24 FINDINGS: BRAIN AND EXTRA-AXIAL SPACES: Hypodense lesion in the right and left cerebellar hemisphere with signs of volume loss. This is likely sequela of prior infarction. Acute on chronic infarction can not be excluded. Further evaluation MRI is recommended. The cerebral and cerebellar sulci are prominent consistent with brain atrophy. Areas of decreased attenuation in the deep cerebral white matter are consistent with small vessel ischemic/degenerative changes. No acute intracranial hemorrhage, mass effect or midline shift. BONES/JOINTS: Unremarkable. No acute fracture. SOFT TISSUES: Unremarkable. SINUSES: Unremarkable as visualized. No acute sinusitis. MASTOID AIR CELLS: Unremarkable as visualized. No mastoid effusion. OTHER FINDINGS: . None. . ... IMPRESSION: 1. Hypodense lesion in the right and left cerebellar hemisphere with signs of volume loss. This is likely sequela of prior infarction. Acute on chronic infarction can not be excluded. Further evaluation MRI is recommended. 2. No acute intracranial hemorrhage, mass effect or midline shift. 3. Generalized brain atrophy. 4. Small vessel ischemic/degenerative changes. Assessment/Plan Assessment/Plan Assessment/Plan: Acute encephalopathy Syncope Failure to thrive Labs NS 1 L given ED Mag level UA Chest x-ray Troponin negative EKG CT head Echo ordered Last echo on 05/04/2024 EF 35% UDS TSH Lipid panel BNP Vitamin B12 Vitamin-D Ammonia Hypodense lesion in the right and left cerebellar hemisphere with signs of volume loss. This is likely sequela of prior infarction. Acute on chronic infarction can not be excluded. No acute intracranial hemorrhage, mass effect or midline shift. Generalized brain atrophy. Small vessel ischemic/degenerative changes. MRI brain ordered Neuro consult Neuro checks Neuro precautions Diabetes type 2 uncontrolled History of DKA Hemoglobin A1c ISS and Accu-Cheks Chronic hypertension Continue home medications Chronic neuropathy Follow up outpatient with PCP Chronic nephropathy Follow up outpatient with PCP History of ME Monitor History of pneumonia Chest x-ray done History of systolic heart failure Continue home medications Strict Is&Os Daily weights History of Acute hypoxic respiratory failure Monitor FEN/PPX Diet HL PUD ppx - not indicated no history of GERD or GI bleed DVT ppx -not indicated patient ambulating Discussed plan of care with nurse Admit to [facility] Home medications reconciled Plan discussed with: Patient My Orders Orders - ARLIN RUTH Procedure Category Date Status Time Head Without Contrast CT 11/18/24 Logged 09:54 Echo 2d Mode Cardiac US 11/18/24 Logged DOP 09:54 Hemoglobin A1c LAB 11/18/24 Transmitted 09:54 Glucose Blood PHA 11/18/24 Transmitted (Accu-Chek Comfort 11:30 Mild Sliding Scale PHA 11/18/24 Transmitted 11:30 Dextrose 50% Syringe PHA 11/18/24 Transmitted 10:00 Drug Screen LAB 11/18/24 Transmitted 09:54 Admit ADMIT 11/18/24 Transmitted 09:54 Allergies LEAH 11/18/24 Transmitted 09:54 Code Status CODE 11/18/24 Transmitted 09:54 Ondansetron Hcl PHA 11/18/24 Transmitted (Zofran) 10:00 Complete Blood Count LAB 11/19/24 Verified 04:00 Comprehensive LAB 11/19/24 Verified Metabolic Panel 04:00 Cardiac DIET 11/18/24 Transmitted Diet-2gna,Lofat,Lochol Lunch Acetaminophen Tablet PHA 11/18/24 Transmitted (Tylenol Tablet) 10:00 Date of Service: Nov 18, 2024 Billing Provider: ARLIN RUTH Common Visit Codes: [id number] INP/OBS CARE (HIGH) ARLIN RUTH Nov 18, 2024 10:07
[2024-11-18 10:28] LABS: Triglycerides 97 mg/dL (< 150)
--- NOTE | 2024-11-18 10:28 | DVH ---
EXAM: CT Head Without Intravenous Contrast CLINICAL INDICATION: trauma TECHNIQUE: Axial computed tomography images of the head/brain without intravenous contrast. This CT exam was performed using one or more of the following dose reduction techniques: automated exposure control, adjustment of the mA and/or kV according to patient size, and/or use of iterative reconstru ction technique. CONTRAST: COMPARISON: CT HEAD WITHOUT CONTRAST on DOS: 05/03/24 FINDINGS: BRAIN AND EXTRA-AXIAL SPACES: Hypodense lesion in the right and left cerebellar hemisphere with sig ns of volume loss. This is likely sequela of prior infarction. Acute on chronic infarction can not b e excluded. Further evaluation MRI is recommended. The cerebral and cerebellar sulci are prominent consistent with brain atrophy. Areas of decreased attenuation in the deep cerebral white matter are consistent with small vessel ischemic/degenerative changes. No acute intracranial hemorrhage, mass e ffect or midline shift. BONES/JOINTS: Unremarkable. No acute fracture. SOFT TISSUES: Unremarkable. SINUSES: Unremarkable as visualized. No acute sinusitis. MASTOID AIR CELLS: Unremarkable as visualized. No mastoid effusion. OTHER FINDINGS: . None. . ... IMPRESSION: 1. Hypodense lesion in the right and left cerebellar hemisphere with signs of volume loss. This is l ikely sequela of prior infarction. Acute on chronic infarction can not be excluded. Further evaluat ion MRI is recommended. 2. No acute intracranial hemorrhage, mass effect or midline shift. 3. Generalized brain atrophy. 4. Small vessel ischemic/degenerative changes.
[2024-11-18 10:29] LABS: LDL Cholesterol 86 mg/dL (< 100)
[2024-11-18 10:30] LABS: Cholesterol 144 mg/dL (< 200)
[2024-11-18 10:37] LABS: HDL Cholesterol 42 mg/dL (40-59)
[2024-11-18 10:41] VITALS: RESP 16
[2024-11-18] MEDS: InsuLIN REG 1unit/0.01ml Soln (100units/ml) SC SCH (11:18)
[2024-11-18] MEDS: ACCU-CHEK COMFORT CURVE STRIP VI SCH (11:32)
[2024-11-18 14:10] VITALS: BP 122/81; PULSE 85; RESP 18; TEMP 97.8; O2SAT 96
--- NOTE | 2024-11-18 15:07 | DVH ---
EXAM: MRI BRAIN HEAD WO CONTRAST HISTORY: r/o infacrt acute COMPARISON: None TECHNIQUE: MRI was performed utilizing multiple appropriate imaging planes and pulse sequences. FINDINGS: SUPRATENTORIAL REGION: No evidence for acute ischemia or intracranial hemorrhage. POSTERIOR FOSSA: Unremarkable. BRAINSTEM: Unremarkable. SELLAR/SUPRASELLAR REGION: Unremarkable. VENTRICLES, CISTERNS, SULCI: Age-appropriate. ORBITS: Unremarkable. PARANASAL SINUSES: Unremarkable. MASTOID AIR CELLS: Unremarkable. VASCULATURE: Unremarkable. BONES/ SOFT TISSUES: Unremarkable. OTHER: None. IMPRESSION: 1. No acute intracranial process identified.
[2024-11-18 17:13] VITALS: BP 131/74; PULSE 84; RESP 18; TEMP 98; O2SAT 96
[2024-11-18 20:39] LABS: Urine Bacteria None Seen /hpf (None Seen)
[2024-11-18 21:00] VITALS: BP 135/74; PULSE 79; RESP 19; TEMP 97.9; O2SAT 96
[2024-11-18 21:11] LABS: Urine Blood 1+ /uL (Negative); Urine Clarity Clear (Clear); Urine Color Light-Yellow (Yellow); Urine Mucus FEW (None Seen); Urine Protein, UAD TRACE (Negative); Urine Specific Gravity 1.028 (1.001-1.035); Urine Squamous Epithelial Cell FEW /hpf (<5); Urine Urobilinogen Normal (Negative); Urine WBC 1 /HPF (0-3)
[2024-11-18] MEDS: CARVEDILOL 3.125 MG TAB PO SCH (21:25)
[2024-11-18 21:40] LABS: Amphetamine Screen, Urine Neg (NEGATIVE); Barbiturate Scree,Urine Neg (NEGATIVE); Benzodiazephine Screen, Urine Neg (NEGATIVE); Cannabinoid Screen, Urine Neg (NEGATIVE); Cocaine Screen, Urine Neg (NEGATIVE); Opiate Scree,Urine Neg (NEGATIVE); Phencyclidine Screen, Urine Neg (NEGATIVE)
--- NOTE | 2024-11-18 23:39 | DVHINCON2 ---
Date of service: Nov 18, [address] Laird Reason for Consultation Rule out infarct History of Present Illness Mr. Trujillo is a 74 years old right-handed gentleman with a history of diabetes, the patient was admitted to the [facility] on 11/18/24 with a chief company of general weakness. 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 Since he was discharged from [facility] on 05/31/2024, he was no sym ptoms focal weakness, paresthesia, ataxia/tremor or other symptoms consistent with of stroke, however his CT/MR brain scan on 11/18/2024 showed evidence of left chronic cerebellum hemispheres stroke He reports chronic tingling, numbness in the feet, and he was said to have polyneuropathy UDS, 11/18/2024: Negative Urinalysis, 11/18/2024: WBC: 1, urine leukocyte esterase: Negative CBC, 11/18/2024: Unremarkable HCO3, 11/18/24: 18 HGB A1c, 05/04/2024: 13.9, 11/18/2024: 9.1 TBI/AST/ALT/AP, 11/18/2024: 0.04/78/38/82 TG/HDL/LDL/HDL, 05/2024: 105/119/56/38, 11/18/2024: 97/144/86/42 Vitamin B12, 05/2024: 793 TSH, 05/22/2020 4:2.92 CT head, 05/03/2024: No acute intracranial abnormality CT head, 11/18/2024, comparison: 05/03/2024: 1. Hypodense lesion in the right and left cerebellar hemisphere with signs of volume loss. This is likely sequela of prior infarction. Acute on chronic infarction can not be excluded. Further evaluation MRI is recommended. 2. No acute intracranial hemorrhage, mass effect or midline shift. 3. Generalized brain atrophy. 4. Small vessel ischemic/degenerative changes. MRI head, 11/18/2024: No acute intracranial process identified Past Medical History Hypertension, diabetes, coronary artery disease, heart attack, heart failure, nephropathy Past Surgical History No major surgeries Family History: Diabetes mellitus G8 MOTHER Family History Diabetes, cancer Social History He was a tobacco smoker, no history of alcohol or drug abuse Allergies: Coded Allergies: NO KNOWN ALLERGIES (Unverified , 05/03/24) Home Meds Active Scripts Carvedilol (COREG) 3.125 Mg Tab, 6.25 MG PO Q12HR for 30 Days, #120 TAB 3 Refills Prov:BARBARA MANZANO NP 05/30/24 Aspirin (Aspir-Low) 81 Mg Tab, 81 MG PO DAILY for 30 Days, #30 TAB 3 Refills Prov:BARBARA MANZANO NP 05/30/24 Insulin Syringe/Needle U-100 (ADVOCATE INSULIN SYRINGE/) 0.5 Mg/31 G Mis, MG XX HS, #60 Prov:BARBARA MANZANO NP 05/29/24 Blood Glucose Monitoring Suppl (D-Care Glucometer Kit/Glu W/Device) 1 Kit Kit, KIT XX, #1 Check blood sugars twice a day Prov:BARBARA MANZANO 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 05/29/24 Metformin Hydrochloride (Metformin Hcl) 850 Mg Tab, 850 MG PO BIDWM for 60 Days, #120 TAB Prov:BARBARA MANZANO NP 05/29/24 Insulin Glargine (Lantus) 100 Unit/Ml Inj, 15 UNITS SC HS for 60 Days, #5 INJ Prov:BARBARA MANZANO NP 05/29/24 Reported Medications Losartan Potassium (Losartan Potassium) 25 Mg Tab, 1 TAB PO DAILY 08/15/24 Current Medications Current Medications Medications (Trade) Dose Ordered Sig/Nicki Route PRN Reason Start Time Stop Time Status Last Admin Diagnostic Test (Pha) (Accu-Chek Comfort Curve T) 1 strip ACHS 11/18/24 11:30 11/18/24 21:26 Insulin Human Regular (InsuLIN R) ACHS SC 11/18/24 11:30 11/18/24 21:34 Dextrose 50 ml UD PRN IV Blood Sugar LESS THAN 60 11/18/24 10:00 Ondansetron HCl (Zofran) 4 mg Q4HP PRN IV NAUSEA / VOMITING 11/18/24 10:00 Acetaminophen (Tylenol Tablet) 650 mg Q6HP PRN PO PAIN SCALE 1-3 OR TEMP>100.4 11/18/24 10:00 Aspirin (Ecotrin Enteric Coated Tablet) 81 mg DAILY PO 11/19/24 10:00 Carvedilol (Coreg Tablet) 6.25 mg Q12HR PO 11/18/24 22:00 11/18/24 21:25 Losartan Potassium (Cozaar Tablet) 25 mg DAILY PO 11/19/24 10:00 Review of Systems As above, the other systems are negative Vital Signs Vital Signs Date Time Temp Pulse Resp B/P (MAP) Pulse Ox O2 Delivery O2 Flow Rate FiO2 11/18/24 21:25 79 135/74 11/18/24 21:00 97.9 19 96 97.9 11/18/24 20:00 Room Air* 0 21 Physical Exam GENERAL EXAM: General: the patient is well developed and nourished. No acute distress. HEENT: Normocephalic, neck is supple, no carotid bruits. No mass. RESPIRATORY: Normal respiratory effort with symmetrical lung expansion. Lungs clear to auscultation. CARDIOVASCULAR: Regular rate and rhythm with no murmurs. S1, S2. ABDOMEN: Soft, nontender, normal bowel sound MUSCULOSKELETAL EXAM: Callus in the soles, superficial skin lesions of different age in the feet NEUROLOGICAL: MENTAL STATUS: Awake and alert. Oriented to person, place, he knows year, socially appropriate, able to maintain good conversation SPEECH, LANGUAGE, HIGHER CORTICAL FUNCTION: no aphasia or dysathria. CRANIAL NERVES: #2: Intact visual chung to confrontation. The optic discs were sharp. #3,4,6: Pupils are equal, round and reactive. EOMs full and conjugate. No nystagmus. #5: Facial sensation intact in all three divisions bilaterally. Mandibular strength intact. #7: Facial muscles symmetrical and strength intact. #8: Hearing grossly normal to voice. #9,10: Uvula and soft palate rise in the midline. Swallow and voice are normal. #11: Trapezius and sternomastoid strength intact bilaterally. #12: Tongue midline. No fasciculations or atrophy. SENSATION: Sensation to touch and pinprick is diminished distally in the lower extremities MOTOR: Normal tone in the upper and lower extremity. Normal muscle bulk. No fasciculations. No abnormal movements or posturing. Muscle strength of the major groups in the upper extremities is 5/5. Muscle strength of the major groups in the lower extremities is 5/5. REFLEXES: Deep tendon reflexes are symmetrical. No pathological reflexes. CEREBELLAR/COORDINATION: Finger to nose is normal bilaterally. GAIT/STATION: deferred. Labs/Diagnostic Data Labs Test 11/18/24 20:30 11/18/24 10:36 11/18/24 07:32 Range/Units Urine Color Light-yellow Yellow Urine Clarity Clear Clear Urine pH 5.0 5.0-9.0 Urine Specific [place] 1.028 1.001-1.035 Urine Protein Trace H Negative Urine Ketones 2+ H Negative Urine Blood 1+ H Negative /uL Urine Nitrite Negative Negative Urine Bilirubin Negative Negative Urine Urobilinogen Normal Negative mg/dL Urine Leukocyte Esterase Negative Negative /uL Urine RBC <1 0 - 3 /hpf Urine Microscopic WBC 1 0-3 /HPF Urine Squamous Epithelial Cells Few <5 /hpf Urine Bacteria None seen None Seen /hpf Urine Mucus Few None Seen Urine Glucose 4+ H Normal mg/dL Urine Opiates Screen Neg NEGATIVE Urine Fentanyl Screen Neg NEGATIVE Urine Barbiturates Screen Neg NEGATIVE Urine Phencyclidine Screen Neg NEGATIVE Urine Amphetamines Screen Neg NEGATIVE Urine Benzodiazepines Screen Neg NEGATIVE Urine Cocaine Screen Neg NEGATIVE Urine Cannabinoids Screen Neg NEGATIVE Ammonia < 10 L 11-32 umol/L White Blood Count 8.5 4.4-10.8 10^3/uL Red Blood Count 4.96 4.5-5.90 10^6/uL Hemoglobin 14.8 13.5-17.5 g/dL Hematocrit 43.9 41.0-53.0 % Mean Corpuscular Volume 88.5 80.0-100.0 fL Mean Corpuscular Hemoglobin 29.8 28.0-32.0 pg Mean Corpuscular Hemoglobin Concent 33.7 32.0-36.0 g/dL Red Cell Distribution Width 14.3 11.8-14.3 % Platelet Count 169 140-450 10^3/uL Mean Platelet Volume 11.0 H 6.9-10.8 fL Neutrophils (%) (Auto) 78.0 37.0-80.0 % Lymphocytes (%) (Auto) 9.4 L 10.0-50.0 % Monocytes (%) (Auto) 12.4 H 0.0-12.0 % Eosinophils (%) (Auto) 0.0 0.0-7.0 % Basophils (%) (Auto) 0.2 0.0-2.0 % Neutrophils # (Auto) 6.6 1.6-8.6 10 ^3/uL Lymphocytes # (Auto) 0.8 0.4-5.4 10 ^3/uL Monocytes # (Auto) 1.1 0-1.3 10 ^3/uL Eosinophils # (Auto) 0 0-0.8 10 ^3/uL Basophils # (Auto) 0 0-0.2 10 ^3/uL Nucleated Red Blood Cells 0.2 % Sodium Level 137 136-145 mmol/L Potassium Level 4.3 3.5-5.1 mmol/L Chloride Level 104 98-107 mmol/L Carbon Dioxide Level 18 L 20-31 mmol/L Anion Gap 15 5-15 Blood Urea Nitrogen 22 9-23 mg/dL Creatinine 1.14 0.700-1.30 mg/dL Glomerular Filtration Rate Calc 67 >90 mL/min BUN/Creatinine Ratio 19.3 10.0-20.0 Serum Glucose 287 H 74-106 mg/dL Hemoglobin A1c 9.1 H <5.7 % A1C Calcium Level 9.4 8.7-10.4 mg/dL Magnesium Level 2.0 1.6-2.6 mg/dL Total Bilirubin 0.4 0.2-1.0 mg/dL Aspartate Amino Transferase (AST) 78 H 13-40 U/L Alanine Aminotransferase (ALT) 38 7-40 U/L Alkaline Phosphatase 82 46-116 U/L Troponin I High Sensitivity 42 </=54 ng/L B-Type Natriuretic Peptide 57.09 0-100 pg/mL Total Protein 6.4 5.7-8.2 g/dL Albumin 4.1 3.2-4.8 g/dL Triglycerides Level 97 < 150 mg/dL Cholesterol Level 144 < 200 mg/dL LDL Cholesterol 86 < 100 mg/dL HDL Cholesterol 42 40-59 mg/dL Assessment Left cerebellum stroke between 05/2024-11/2024 Bilateral leg weakness Fall Diabetic polyneuropathy Plan/Recommendation Monitoring Supportive treatment Telemetry TTE Carotid Doppler ASA 81mg Qd Lipitor 20mg Qd DVT prophylaxis Up to chair Physical therapy I have discussed with him about foot care, daily foot inspection, and using protective/soft/wide shoes only More recommendation per clinical course This medical document was created using an electronic medical record system with Dragon computerized dictation system. Although this document has been carefully reviewed, there may still be some phonetic and typographical errors. These areas are purely typographical due to imperfections of the software programs, and do not reflect any compromise in the patient's medical care. Plan discussed with: Patient, Other MICA ROMO MD Nov 18, 2024 23:39
[2024-11-19] VITALS (9 sets, daily range): BP systolic 89–138; BP diastolic 53–83; PULSE 67–89; RESP 18–20; TEMP 97.5–98.2; O2SAT 95–97
[2024-11-19 08:45] LABS: Basophils # (auto) 0 10 ^3/uL (0-0.2); Basophils % (auto) 0.3 % (0.0-2.0); Eosinophils # (auto) 0 10 ^3/uL (0-0.8); Eosinophils % (auto) 0.2 % (0.0-7.0); Hematocrit 43.5 % (41.0-53.0); Hemoglobin 14.8 g/dL (13.5-17.5); Lymphocytes # (auto) 1.3 10 ^3/uL (0.4-5.4); Lymphocytes % (auto) 22.7 % (10.0-50.0); Mean Corpuscular Hemoglobin 30.3 pg (28.0-32.0); Mean Corpuscular Hgb Conc. 34.1 g/dL (32.0-36.0); Monocytes # (auto) 0.8 10 ^3/uL (0-1.3); Neutrophils # (auto) 3.7 10 ^3/uL (1.6-8.6); Neutrophils % (auto) 62.8 % (37.0-80.0); Nucleated Red Blood Cells % 0.1 %; Platelet Count (auto) 157 10^3/uL (140-450); Red Blood Cells 4.89 10^6/uL (4.5-5.90); Red Cell Distribution Width 13.8 % (11.8-14.3); White Blood Cell 5.9 10^3/uL (4.4-10.8)
[2024-11-19 09:03] LABS: Albumin 3.8 g/dL (3.2-4.8); Alkaline Phosphatase 75 U/L (46-116); Anion Gap 7 (5-15); BUN/Creatinine Ratio 17.4 (10.0-20.0); Bilirubin, Total 0.4 mg/dL (0.2-1.0); Blood Urea Nitrogen 20 mg/dL (9-23); Calcium 9.2 mg/dL (8.7-10.4); Carbon Dioxide 25 mmol/L (20-31); Chloride 106 mmol/L (98-107); Potassium 4.4 mmol/L (3.5-5.1); Sodium 138 mmol/L (136-145); Total Protein 5.9 g/dL (5.7-8.2)
[2024-11-19 09:23] LABS: Alanine Aminotransferase 54 U/L (7-40); Aspartate Aminotransferase 125 U/L (13-40); Glucose 254 mg/dL (74-106)
[2024-11-19] MEDS: LOSARTAN POTASSIUM 25 MG TAB PO SCH (10:00)
[2024-11-19] MEDS: ASPirin-EC 81 mg tab PO SCH (10:28)
--- NOTE | 2024-11-19 16:15 | DVHPN2 ---
Progress Note - Dictate Date Seen: Nov 19, 2024 Medical Necessity Reason Pt with a Central, PICC or Fol: No Subjective Mr. Trujillo is a 74 years old right-handed gentleman with a history of diabetes, the patient was admitted to the [facility] on 11/18/24 with a chief company of general weakness. I saw him on 05/23/2024 for episodic confusion (DKA) I have seen and examined the patient, I have discussed with her nurse, he was doing fine, no new complaints He refused echocardiogram because he just had an unremarkable echocardiogram with Dr. Nelson Shi last week UDS, 11/18/2024: Negative Urinalysis, 11/18/2024: WBC: 1, urine leukocyte esterase: Negative CBC, 11/18/2024: Unremarkable HCO3, 11/18/24: 18 HGB A1c, 05/04/2024: 13.9, 11/18/2024: 9.1 TBI/AST/ALT/AP, 11/18/2024: 0.04/78/38/82 TG/HDL/LDL/HDL, 05/2024: 105/119/56/38, 11/18/2024: 97/144/86/42 Vitamin B12, 05/2024: 793 TSH, 05/22/2020 4:2.92 CT head, 05/03/2024: No acute intracranial abnormality CT head, 11/18/2024, comparison: 05/03/2024: 1. Hypodense lesion in the right and left cerebellar hemisphere with signs of volume loss. This is likely sequela of prior infarction. Acute on chronic infarction can not be excluded. Further evaluation MRI is recommended. 2. No acute intracranial hemorrhage, mass effect or midline shift. 3. Generalized brain atrophy. 4. Small vessel ischemic/degenerative changes. MRI head, 11/18/2024: No acute intracranial process identified vital signs Vital Sign Date Time Temp Pulse Resp B/P (MAP) Pulse Ox O2 Delivery O2 Flow Rate FiO2 11/19/24 13:00 97.5 84 20 101/75 (84) 97 97.5 11/18/24 20:00 Room Air* 0 21 Total Intake and Output 11/18/24 11/18/24 11/19/24 15:00 23:00 07:00 Intake Total 1000 ml 0 ml 720 ml Output Total 900 ml Balance 1000 ml 0 ml -180 ml medications Current Medications Medications Dose Ordered Sig/Nicki Route Start Time Stop Time Status Last Admin Dose Admin Diagnostic Test (Pha) 1 strip ACHS 11/18/24 11:30 11/19/24 10:31 1 STRIP Insulin Human Regular ACHS SC 11/18/24 11:30 11/19/24 10:38 8 UNITS Dextrose 50 ml UD PRN IV 11/18/24 10:00 Ondansetron HCl 4 mg Q4HP PRN IV 11/18/24 10:00 Acetaminophen 650 mg Q6HP PRN PO 11/18/24 10:00 Aspirin 81 mg DAILY PO 11/19/24 10:00 11/19/24 10:28 81 MG Atorvastatin Calcium 10 mg HS PO 11/19/24 22:00 Metoprolol Succinate 25 mg DAILY PO 11/20/24 10:00 objective General: the patient is well developed and nourished. No acute distress. MUSCULOSKELETAL EXAM: Callus in the soles, superficial skin lesions of different age in the feet MENTAL STATUS: Awake and alert. Oriented to person, place, he knows year, socially appropriate, able to maintain good conversation SPEECH, LANGUAGE, HIGHER CORTICAL FUNCTION: no aphasia or dysathria. CRANIAL NERVES: Intact visual chung to confrontation. Pupils are equal, round and reactive. EOMs full and conjugate. No nystagmus. Facial sensation intact in all three divisions bilaterally. Mandibular strength intact. Facial muscles symmetrical and strength intact. SENSATION: Sensation to touch and pinprick is diminished distally in the lower extremities MOTOR: Normal tone in the upper and lower extremity. Normal muscle bulk. No fasciculations. No abnormal movements or posturing. Muscle strength of the major groups in the extremities is 5/5. REFLEXES: Deep tendon reflexes are symmetrical. No pathological reflexes. CEREBELLAR/COORDINATION: Finger to nose is normal bilaterally. GAIT/STATION: deferred. laboratory and microbiology Laboratory Tests 11/19/24 08:15 Test 11/19/24 08:15 Range/Units Serum Glucose 254 H 74-106 mg/dL Problem List Left cerebellum stroke between 05/2024-11/2024 Bilateral leg weakness Fall Diabetic polyneuropathy Assessment/Plan Monitoring Supportive treatment Telemetry TTE report from Dr. Nelson Shi Carotid Doppler ASA 81mg Qd Lipitor 20mg Qd DVT prophylaxis Up to chair Physical therapy I have discussed with him about foot care, daily foot inspection, and using protective/soft/wide shoes only More recommendation per clinical course This medical document was created using an electronic medical record system with Mobile [employer] dictation system. Although this document has been carefully reviewed, there may still be some phonetic and typographical errors. These areas are purely typographical due to imperfections of the software programs, and do not reflect any compromise in the patient's medical care. Prognosis poor Plan discussed with: Patient, Other MICA ROMO MD Nov 19, 2024 16:15
--- NOTE | 2024-11-19 17:37 | DVHPN2 ---
Subjective 11/19-patient appearing well, per RN ambulating. He no longer feels dizzy and has not having anymore shortness. He does not source that has he fell in because of mechanical fall at nighttime because he was unable to see properly due to darkness. We will complete workup and keep patient for 1 more day. Transaminitis to get right upper quadrant ultrasound. We will try to decrease blood pressure medications and check orthostatics. MRI done is negative. Patient has no focal neurological deficits. Reviewed: H&P Changes from previous H/P or p: No Changes General: Per HPI Objective Vitals Vital Signs Date Time Temp Pulse Resp B/P (MAP) Pulse Ox O2 Delivery O2 Flow Rate FiO2 11/19/24 13:00 97.5 84 20 101/75 (84) 97 97.5 11/19/24 08:30 Room Air* 0 21 Intake/Output Intake and Output 11/19/24 07:00 Intake Total 1720 ml Output Total 900 ml Balance 820 ml Intake Oral 720 ml IV Total 1000 ml Output Urine Total 900 ml Exam GEN: Healthy appearing, well-developed, NAD. HEENT: NC/AT; MMM. CV: RRR, no m/r/g. LUNGS: CTAB, no w/r/c. ABD: Soft, NT/ND, NBS, no masses or organomegaly. EXT: skin Warm, well perfused. no rashes. No clubbing, cyanosis, or edema. NEURO: Ambulating with no limitations. No focal deficits. Medications Current Medications Medications Dose Ordered Sig/Nicki Route Start Time Stop Time Status Last Admin Dose Admin Diagnostic Test (Pha) 1 strip ACHS 11/18/24 11:30 11/19/24 16:54 1 STRIP Insulin Human Regular ACHS SC 11/18/24 11:30 11/19/24 16:54 10 UNITS Dextrose 50 ml UD PRN IV 11/18/24 10:00 Ondansetron HCl 4 mg Q4HP PRN IV 11/18/24 10:00 Acetaminophen 650 mg Q6HP PRN PO 11/18/24 10:00 Aspirin 81 mg DAILY PO 11/19/24 10:00 11/19/24 10:28 81 MG Atorvastatin Calcium 10 mg HS PO 11/19/24 22:00 Metoprolol Succinate 25 mg DAILY PO 11/20/24 10:00 Laboratory Results Laboratory Tests 11/19/24 08:15 Chemistry Test 11/19/24 08:15 Albumin 3.8 g/dL (3.2-4.8) Calcium Level 9.2 mg/dL (8.7-10.4) Total Protein 5.9 g/dL (5.7-8.2) LFT Test 11/19/24 08:15 Alanine Aminotransferase (ALT) 54 U/L (7-40) H Alkaline Phosphatase 75 U/L (46-116) Aspartate Amino Transferase (AST) 125 U/L (13-40) H Total Bilirubin 0.4 mg/dL (0.2-1.0) Urinalysis Test 11/18/24 20:30 Urine Color Light-yellow (Yellow) Urine Clarity Clear (Clear) Urine pH 5.0 (5.0-9.0) Urine Specific [place] 1.028 (1.001-1.035) Urine Protein Trace (Negative) H Urine Ketones 2+ (Negative) H Urine Blood 1+ /uL (Negative) H Urine Nitrite Negative (Negative) Urine Bilirubin Negative (Negative) Urine Urobilinogen Normal mg/dL (Negative) Urine Leukocyte Esterase Negative /uL (Negative) Urine RBC <1 /hpf (0 - 3) Urine Microscopic WBC 1 /HPF (0-3) Urine Squamous Epithelial Cells Few /hpf (<5) Urine Bacteria None seen /hpf (None Seen) Urine Mucus Few (None Seen) Urine Glucose 4+ mg/dL (Normal) H Labs and/or images reviewed: Labs reviewed by me, Image(s) reviewed by me Assessment/Plan Assessment/Plan 11/19-patient appearing well, per RN ambulating. He no longer feels dizzy and has not having anymore shortness. He does not source that has he fell in because of mechanical fall at nighttime because he was unable to see properly due to darkness. We will complete workup and keep patient for 1 more day. Transaminitis to get right upper quadrant ultrasound. We will try to decrease blood pressure medications and check orthostatics. MRI done is negative. Patient has no focal neurological deficits. Status post fall, rule out syncope Acute encephalopathy, resolved Failure to thrive, ruled out Intravascular volume depletion History of CVA Chronic cerebrovascular ischemic changes Chronic hypertension, diabetes, uncontrolled, with history of DKA Chronic neuropathy, Chronic nephropathy, No history NH with no stents, History of DKA, History of pneumonia, Chronic systolic heart failure, - patient presents after fall at home during dark. Patient denies any loss of consciousness. Patient was on the floor for 2-3 hours because he fell in a awkward position where she could not lift himself up from. - patient on exam is without neurological deficits. A&O times 3-4. On lab work, CBC benign and CMP showing rising LFTs with hyperglycemia, UDS negative, UA with SG 1.028, trace protein, 2+ ketones, 1+ blood, 4+ glucose. -11/19 Brain MRI ordered is negative for acute changes -we will decrease home meds from Coreg to metoprolol XL 25 and hold off losartan. -right upper quadrant ultrasound - orthostatic vital signs -tele to evaluate for arrhythmias Diet diabetic/cardiac DVT prophylaxis-Lovenox GI prophylaxis-tolerating diet Med tele Full code Plan discussed with: Patient My Orders Orders - HASMUKH WHELAN MD Procedure Category Date Status Time Abdomen Limited US 11/19/24 Logged 12:00 Orthostatic Vital ORDERS 11/19/24 Transmitted Signs 12:09 Metoprolol Xl PHA 11/20/24 In Process Succinate (Toprol Xl) 10:00 Date of Service: Nov 19, 2024 Billing Provider: HASMUKH WHELAN MD Common Visit Codes: [id number] INP/OBS CARE(HIGH) HASMUKH WHELAN MD Nov 19, 2024 17:37
[2024-11-19] MEDS ORDERED: DEXTROSE (50%) 50ML SYRG IV PRN (18:45)
--- NOTE | 2024-11-19 19:42 | ECG ---
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
--- NOTE | 2024-11-19 21:40 | DVH ---
INDICATION: LFT high TECHNIQUE: Multiple real-time sonographic images were obtained of the right upper quadrant. COMPARISON: None FINDINGS: The liver is within normal limits in size measuring 13.1 cm and echogenicity. A simple appearing cyst measuring up to 5.2 cm noted in the right lobe of the liver. There is no intrahepatic biliary ductal dilatation. Common bile duct not visualized on this study. The gallbladder appears unremarkable with no evidence of stones or wall thickening. Right kidney measures 9.9 cm and is normal in size, contour, and echogenicity. No hydronephrosis. Pancreas not visualized due to overlying bowel gas. IMPRESSION: No significant abnormality demonstrated.
[2024-11-19] MEDS: ACCU-CHEK COMFORT CURVE STRIP VI SCH (22:00)
[2024-11-19] MEDS: ATORVASTATIN 20 MG TAB PO SCH (22:00)
[2024-11-19] MEDS: InsuLIN REG 1unit/0.01ml Soln (100units/ml) SC SCH (22:09)
[2024-11-20] VITALS (8 sets, daily range): BP systolic 140–147; BP diastolic 74–95; PULSE 66–77; RESP 16–20; TEMP 97.9–99; O2SAT 96–97
[2024-11-20 06:42] LABS: Basophils # (auto) 0 10 ^3/uL (0-0.2); Basophils % (auto) 0.2 % (0.0-2.0); Eosinophils # (auto) 0 10 ^3/uL (0-0.8); Eosinophils % (auto) 0.5 % (0.0-7.0); Hematocrit 43.9 % (41.0-53.0); Hemoglobin 14.6 g/dL (13.5-17.5); Lymphocytes # (auto) 1.6 10 ^3/uL (0.4-5.4); Lymphocytes % (auto) 27.7 % (10.0-50.0); Mean Corpuscular Hemoglobin 29.3 pg (28.0-32.0); Mean Corpuscular Hgb Conc. 33.3 g/dL (32.0-36.0); Monocytes # (auto) 0.9 10 ^3/uL (0-1.3); Monocytes % (auto) 15.2 % (0.0-12.0); Neutrophils # (auto) 3.2 10 ^3/uL (1.6-8.6); Neutrophils % (auto) 56.4 % (37.0-80.0); Nucleated Red Blood Cells % 0.1 %; Platelet Count (auto) 163 10^3/uL (140-450); Red Blood Cells 4.99 10^6/uL (4.5-5.90); White Blood Cell 5.7 10^3/uL (4.4-10.8)
[2024-11-20 06:59] LABS: Alkaline Phosphatase 72 U/L (46-116); Anion Gap 8 (5-15); BUN/Creatinine Ratio 23.7 (10.0-20.0); Blood Urea Nitrogen 22 mg/dL (9-23); Calcium 9.5 mg/dL (8.7-10.4); Carbon Dioxide 26 mmol/L (20-31); Chloride 106 mmol/L (98-107); Potassium 4.2 mmol/L (3.5-5.1); Sodium 140 mmol/L (136-145)
[2024-11-20 07:00] LABS: Albumin 3.8 g/dL (3.2-4.8); Bilirubin, Total 0.4 mg/dL (0.2-1.0); Total Protein 5.9 g/dL (5.7-8.2)
[2024-11-20 07:03] LABS: Alanine Aminotransferase 58 U/L (7-40); Aspartate Aminotransferase 111 U/L (13-40); Glucose 185 mg/dL (74-106)
[2024-11-20] MEDS: METOPROLOL SUCCINATE XL 50 MG TAB PO SCH (10:33)
--- NOTE | 2024-11-20 11:21 | DVHPN2 ---
Progress Note - Dictate Date Seen: Nov 20, 2024 Medical Necessity Reason Pt with a Central, PICC or Fol: No Subjective Mr. Trujillo is a 74 years old right-handed gentleman with a history of diabetes, the patient was admitted to the [facility] on 11/18/24 with a chief company of general weakness. I saw him on 05/23/2024 for episodic confusion (DKA) I have seen and examined the patient, I have discussed with her nurse, he was doing fine, no new complaints. He walked with no problem According to his nurse, the lights were off before he fell UDS, 11/18/2024: Negative Urinalysis, 11/18/2024: WBC: 1, urine leukocyte esterase: Negative CBC, 11/18/2024: Unremarkable HCO3, 11/18/24: 18 HGB A1c, 05/04/2024: 13.9, 11/18/2024: 9.1 TBI/AST/ALT/AP, 11/18/2024: 0.04/78/38/82 TG/HDL/LDL/HDL, 05/2024: 105/119/56/38, 11/18/2024: 97/144/86/42 Vitamin B12, 05/2024: 793 TSH, 05/22/2020 4:2.92 CT head, 05/03/2024: No acute intracranial abnormality CT head, 11/18/2024, comparison: 05/03/2024: 1. Hypodense lesion in the right and left cerebellar hemisphere with signs of volume loss. This is likely sequela of prior infarction. Acute on chronic infarction can not be excluded. Further evaluation MRI is recommended. 2. No acute intracranial hemorrhage, mass effect or midline shift. 3. Generalized brain atrophy. 4. Small vessel ischemic/degenerative changes. MRI head, 11/18/2024: No acute intracranial process identified vital signs Vital Sign Date Time Temp Pulse Resp B/P (MAP) Pulse Ox O2 Delivery O2 Flow Rate FiO2 11/20/24 10:33 77 147/86 11/20/24 09:00 98.1 20 96 98.1 11/19/24 20:00 Room Air* 0 21 Total Intake and Output 11/19/24 11/19/24 11/20/24 15:00 23:00 07:00 Intake Total 160 ml 200 ml Output Total 650 ml 500 ml Balance -490 ml -300 ml medications Current Medications Medications Dose Ordered Sig/Nicki Route Start Time Stop Time Status Last Admin Dose Admin Ondansetron HCl 4 mg Q4HP PRN IV 11/18/24 10:00 Acetaminophen 650 mg Q6HP PRN PO 11/18/24 10:00 Aspirin 81 mg DAILY PO 11/19/24 10:00 11/20/24 10:34 81 MG Atorvastatin Calcium 10 mg HS PO 11/19/24 22:00 11/19/24 22:00 10 MG Metoprolol Succinate 25 mg DAILY PO 11/20/24 10:00 11/20/24 10:33 25 MG Diagnostic Test (Pha) 1 strip ACHS 11/19/24 22:00 11/20/24 06:09 1 STRIP Insulin Human Regular ACHS SC 11/19/24 22:00 11/20/24 10:55 6 UNITS Dextrose 50 ml UD PRN IV 11/19/24 18:45 objective General: the patient is well developed and nourished. No acute distress. MUSCULOSKELETAL EXAM: Callus in the soles, superficial skin lesions of different age in the feet MENTAL STATUS: Awake and alert. Oriented to person, place, he knows year, socially appropriate, able to maintain good conversation SPEECH, LANGUAGE, HIGHER CORTICAL FUNCTION: no aphasia or dysathria. CRANIAL NERVES: Intact visual chung to confrontation. Pupils are equal, round and reactive. EOMs full and conjugate. No nystagmus. Facial sensation intact in all three divisions bilaterally. Mandibular strength intact. Facial muscles symmetrical and strength intact. SENSATION: Sensation to touch and pinprick is diminished distally in the lower extremities MOTOR: Normal tone in the upper and lower extremity. Normal muscle bulk. No fasciculations. No abnormal movements or posturing. Muscle strength of the major groups in the extremities is 5/5. REFLEXES: Deep tendon reflexes are symmetrical. No pathological reflexes. CEREBELLAR/COORDINATION: Finger to nose is normal bilaterally. GAIT/STATION: deferred. 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 Nelson Shi Carotid Doppler ASA 81mg Qd Lipitor 20mg Qd DVT prophylaxis Up to chair Physical therapy I have discussed with him about foot care, daily foot inspection, and using protective/soft/wide shoes only More recommendation per clinical course This medical document was created using an electronic medical record system with Traction dictation system. Although this document has been carefully reviewed, there may still be some phonetic and typographical errors. These areas are purely typographical due to imperfections of the software programs, and do not reflect any compromise in the patient's medical care. Prognosis poor Plan discussed with: Patient, Other MICA ROMO MD Nov 20, 2024 11:21
[2024-11-20] MEDS ORDERED: METO25TA36 PO (15:51)
[2024-11-20] MEDS ORDERED: INSU100I51 SC (15:51)
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
[2024-11-21] VITALS (7 sets, daily range): BP systolic 100–162; BP diastolic 64–90; PULSE 63–83; RESP 17–19; TEMP 97.2–98.5; O2SAT 94–97
[2024-11-21] MEDS ORDERED: ZOFR4T PO (10:00)
[2024-11-21] MEDS ORDERED: TAMS-35 PO (10:00)
[2024-11-21] MEDS ORDERED: FINA5TAB4 PO (10:00)
[2024-11-21] MEDS: ONDANSETRON ODT 4 MG TAB PO ONE (12:16)
[2024-11-21] MEDS: TAMSULOSIN HYDROCHLORIDE 0.4 MG CAP PO ONE (12:16)
--- NOTE | 2024-11-21 17:19 | DVHPN2 ---
Subjective Update 11/21 11/19-patient appearing well, per RN ambulating. He no longer feels dizzy and has not having anymore shortness. He does not source that has he fell in because of mechanical fall at nighttime because he was unable to see properly due to darkness. We will complete workup and keep patient for 1 more day. Transaminitis to get right upper quadrant ultrasound. We will try to decrease blood pressure medications and check orthostatics. MRI done is negative. Patient has no focal neurological deficits. 11/20 patient orthostatics are resolved, appropriate changes made for medications at home. See discharge summary for discharge plan 11/21 patient not discharged yesterday due to no placement. We will continue to work on placement today. Patient complaining of nocturia and nausea, we will add medications and prescribe more and for home, DC summary updated. Reviewed: H&P Changes from previous H/P or p: No Changes General: Per HPI Objective Vitals Vital Signs Date Time Temp Pulse Resp B/P (MAP) Pulse Ox O2 Delivery O2 Flow Rate FiO2 11/21/24 13:00 98.1 69 18 162/90 (114) 97 98.1 11/21/24 08:00 Room Air* 0 21 Intake/Output Intake and Output 11/21/24 07:00 Intake Total 1580 ml Output Total 1950 ml Balance -370 ml Intake Oral 1580 ml Output Urine Total 1950 ml Exam GEN: Healthy appearing, well-developed, NAD. HEENT: NC/AT; MMM. CV: RRR, no m/r/g. LUNGS: CTAB, no w/r/c. ABD: Soft, NT/ND, NBS, no masses or organomegaly. EXT: skin Warm, well perfused. no rashes. No clubbing, cyanosis, or edema. NEURO: Ambulating with no limitations. No focal deficits. Medications Current Medications Medications Dose Ordered Sig/Nicki Route Start Time Stop Time Status Last Admin Dose Admin Ondansetron HCl 4 mg Q4HP PRN IV 11/18/24 10:00 Acetaminophen 650 mg Q6HP PRN PO 11/18/24 10:00 Aspirin 81 mg DAILY PO 11/19/24 10:00 11/21/24 09:23 81 MG Atorvastatin Calcium 10 mg HS PO 11/19/24 22:00 11/20/24 23:11 10 MG Metoprolol Succinate 25 mg DAILY PO 11/20/24 10:00 11/21/24 09:23 25 MG Diagnostic Test (Pha) 1 strip ACHS 11/19/24 22:00 11/21/24 11:33 1 STRIP Insulin Human Regular ACHS SC 11/19/24 22:00 11/21/24 12:19 8 UNITS Dextrose 50 ml UD PRN IV 11/19/24 18:45 Tamsulosin HCl 0.4 mg QPM PO 11/21/24 18:00 Laboratory Results Laboratory Tests 11/20/24 06:01 Urinalysis Test 11/18/24 20:30 Urine Color Light-yellow (Yellow) Urine Clarity Clear (Clear) Urine pH 5.0 (5.0-9.0) Urine Specific [place] 1.028 (1.001-1.035) Urine Protein Trace (Negative) H Urine Ketones 2+ (Negative) H Urine Blood 1+ /uL (Negative) H Urine Nitrite Negative (Negative) Urine Bilirubin Negative (Negative) Urine Urobilinogen Normal mg/dL (Negative) Urine Leukocyte Esterase Negative /uL (Negative) Urine RBC <1 /hpf (0 - 3) Urine Microscopic WBC 1 /HPF (0-3) Urine Squamous Epithelial Cells Few /hpf (<5) Urine Bacteria None seen /hpf (None Seen) Urine Mucus Few (None Seen) Urine Glucose 4+ mg/dL (Normal) H Labs and/or images reviewed: Labs reviewed by me, Image(s) reviewed by me Assessment/Plan Assessment/Plan 11/21 patient not discharged yesterday due to no placement. We will continue to work on placement today. Patient complaining of nocturia and nausea, we will add medications and prescribe more and for home, DC summary updated. Status post fall, rule out syncope Acute encephalopathy, resolved Failure to thrive, ruled out Intravascular volume depletion History of CVA Chronic cerebrovascular ischemic changes Chronic hypertension, diabetes, uncontrolled, with history of DKA Chronic neuropathy, Chronic nephropathy, No history AR with no stents, History of DKA, History of pneumonia, Chronic systolic heart failure, - patient presents after fall at home during dark. Patient denies any loss of consciousness. Patient was on the floor for 2-3 hours because he fell in a awkward position where she could not lift himself up from. - patient on exam is without neurological deficits. A&O times 3-4. On lab work, CBC benign and CMP showing rising LFTs with hyperglycemia, UDS negative, UA with SG 1.028, trace protein, 2+ ketones, 1+ blood, 4+ glucose. -11/19 Brain MRI ordered is negative for acute changes -right upper quadrant ultrasound - normal - orthostatic vital signs + but later negative after med changes. -we will decrease home meds from Coreg to metoprolol XL 25 and hold off losartan. - dc tele Diet diabetic/cardiac DVT prophylaxis-Lovenox GI prophylaxis-tolerating diet Med tele Full code Plan discussed with: Patient My Orders Orders - HASMUKH WHELAN MD Procedure Category Date Status Time Tamsulosin PHA 11/21/24 In Process Hydrochloride (Flomax) 18:00 Date of Service: Nov 21, 2024 Billing Provider: HASMUKH WHELAN MD Common Visit Codes: [id number] INP/OBS CARE(MOD) HASMUKH WHELAN MD Nov 21, 2024 17:19
[2024-11-21] MEDS: TAMSULOSIN HYDROCHLORIDE 0.4 MG CAP PO SCH (17:32)
[2024-11-22 01:00] VITALS: BP 135/90; PULSE 73; RESP 18; TEMP 98.4; O2SAT 96
[2024-11-22 05:00] VITALS: BP 150/82; PULSE 75; RESP 18; TEMP 97.7; O2SAT 97
[2024-11-22 08:00] VITALS: RESP 17; O2SAT 97
[2024-11-22 09:00] VITALS: BP 132/89; PULSE 89; RESP 17; TEMP 97.9; O2SAT 96
--- NOTE | 2024-11-22 15:11 | DVHPN2 ---
Subjective Update 11/22 11/19-patient appearing well, per RN ambulating. He no longer feels dizzy and has not having anymore shortness. He does not source that has he fell in because of mechanical fall at nighttime because he was unable to see properly due to darkness. We will complete workup and keep patient for 1 more day. Transaminitis to get right upper quadrant ultrasound. We will try to decrease blood pressure medications and check orthostatics. MRI done is negative. Patient has no focal neurological deficits. 11/20 patient orthostatics are resolved, appropriate changes made for medications at home. See discharge summary for discharge plan 11/21 patient not discharged yesterday due to no placement. We will continue to work on placement today. Patient complaining of nocturia and nausea, we will add medications and prescribe more and for home, DC summary updated. 11/22 patient with plan for discharge today, placement done ready for ride today. No changes Reviewed: H&P Changes from previous H/P or p: No Changes General: Per HPI Objective Vitals Vital Signs Date Time Temp Pulse Resp B/P (MAP) Pulse Ox O2 Delivery O2 Flow Rate FiO2 11/22/24 09:00 97.9 89 17 132/89 (103) 96 97.9 11/22/24 08:00 Room Air* 0 21 Intake/Output Intake and Output 11/22/24 07:00 Intake Total 1000 ml Output Total 300 ml Balance 700 ml Intake Oral 1000 ml Output Urine Total 300 ml Exam GEN: Healthy appearing, well-developed, NAD. HEENT: NC/AT; MMM. CV: RRR, no m/r/g. LUNGS: CTAB, no w/r/c. ABD: Soft, NT/ND, NBS, no masses or organomegaly. EXT: skin Warm, well perfused. no rashes. No clubbing, cyanosis, or edema. NEURO: Ambulating with no limitations. No focal deficits. Laboratory Results Laboratory Tests 11/20/24 06:01 Urinalysis Test 11/18/24 20:30 Urine Color Light-yellow (Yellow) Urine Clarity Clear (Clear) Urine pH 5.0 (5.0-9.0) Urine Specific [place] 1.028 (1.001-1.035) Urine Protein Trace (Negative) H Urine Ketones 2+ (Negative) H Urine Blood 1+ /uL (Negative) H Urine Nitrite Negative (Negative) Urine Bilirubin Negative (Negative) Urine Urobilinogen Normal mg/dL (Negative) Urine Leukocyte Esterase Negative /uL (Negative) Urine RBC <1 /hpf (0 - 3) Urine Microscopic WBC 1 /HPF (0-3) Urine Squamous Epithelial Cells Few /hpf (<5) Urine Bacteria None seen /hpf (None Seen) Urine Mucus Few (None Seen) Urine Glucose 4+ mg/dL (Normal) H Labs and/or images reviewed: Labs reviewed by me, Image(s) reviewed by me Assessment/Plan Assessment/Plan 11/22 patient with plan for discharge today, placement done ready for ride today. No changes Status post fall, rule out syncope Acute encephalopathy, resolved Failure to thrive, ruled out Intravascular volume depletion History of CVA Chronic cerebrovascular ischemic changes Chronic hypertension, diabetes, uncontrolled, with history of DKA Chronic neuropathy, Chronic nephropathy, No history PA with no stents, History of DKA, History of pneumonia, Chronic systolic heart failure, - patient presents after fall at home during dark. Patient denies any loss of consciousness. Patient was on the floor for 2-3 hours because he fell in a awkward position where she could not lift himself up from. - patient on exam is without neurological deficits. A&O times 3-4. On lab work, CBC benign and CMP showing rising LFTs with hyperglycemia, UDS negative, UA with SG 1.028, trace protein, 2+ ketones, 1+ blood, 4+ glucose. -11/19 Brain MRI ordered is negative for acute changes -right upper quadrant ultrasound - normal - orthostatic vital signs + but later negative after med changes. -we will decrease home meds from Coreg to metoprolol XL 25 and hold off losartan. - dc tele Diet diabetic/cardiac DVT prophylaxis-Lovenox GI prophylaxis-tolerating diet Med tele Full code Plan discussed with: Patient Date of Service: Nov 22, 2024 Billing Provider: HASMUKH WHELAN MD Common Visit Codes: [id number] INP/OBS CARE(MOD) HASMUKH WHELAN MD Nov 22, 2024 15:11
[2024-11-23 11:07] LABS: Vitamin D 25-Hydroxy 22 ng/mL (.); Vitamin D-2 25-Hydroxy <1.0 ng/mL (.); Vitamin D-3 25-Hydroxy 22 ng/mL (.)
[2024-11-26 17:07] LABS: Vitamin B1, Whole Blood 104.3 nmol/L (66.5-200.0)
== END 2024-11-22 09:55 | disposition home or self-care (01) | DRG 637 ==
LOC: ER 06:17 → EDBD 06:17 → OVERFLOW 09:54 → WEST WING 14:02
PROVIDERS: ADMIT Student in an Organized Health Care Education/Training Program; ATTEND Student in an Organized Health Care Education/Training Program
DX: E11.65 Type 2 diabetes mellitus with hyperglycemia (principal); G93.41 Metabolic encephalopathy; I50.22 Chronic systolic (congestive) heart failure; E11.40 Type 2 diabetes mellitus with diabetic neuropathy, unspecified; I11.0 Hypertensive heart disease with heart failure; I25.10 Atherosclerotic heart disease of native coronary artery without angina pectoris; E86.9 Volume depletion, unspecified; E11.21 Type 2 diabetes mellitus with diabetic nephropathy; R74.01 Elevation of levels of liver transaminase levels; F17.200 Nicotine dependence, unspecified, uncomplicated; I25.2 Old myocardial infarction; Z79.899 Other long term (current) drug therapy; Z83.3 Family history of diabetes mellitus; Z68.23 Body mass index [BMI] 23.0-23.9, adult; Z87.01 Personal history of pneumonia (recurrent); Z86.73 Personal history of transient ischemic attack (TIA), and cerebral infarction without residual deficits; Z79.4 Long term (current) use of insulin; Z79.84 Long term (current) use of oral hypoglycemic drugs; Z79.82 Long term (current) use of aspirin
CPT/HCPCS: 36415; 70450; 70551; 71045; 76705; 80053; 80061; 80307; 81001; 82140; 82306; 82607; 82962; 83036; 83735; 83880; 84425; 84484; 85025; 93005; 96360; 97110; 97116; 97163; 97530; G0378; J1815; Q0162